=== PATIENT | male | born 1945 | race Caucasian/White ===

== ENCOUNTER 2022-05-05 11:44 | Inpatient (IN) | payer MEDICARE, OTHER ==
[~2022-05-05] VITALS: Ht 182.9 cm; Wt 81.6 kg
--- NOTE | 2022-05-05 12:13 | NUR ---
DR REDDY AT BEDSIDE
[2022-05-05] MEDS ORDERED: ONDANSETRON HCL/PF 4 MG/2 ML VIAL IVP ONE (12:30)
[2022-05-05] MEDS ORDERED: MORPHINE SULFATE INJ 2 MG/ML DISP.SYRIN IV ONE (12:30)
[2022-05-05] MEDS ORDERED: ONDANSETRON HCL/PF 4 MG/2 ML VIAL ONE (12:44)
[2022-05-05] MEDS ORDERED: MORPHINE SULFATE INJ 4 MG/ML DISP.SYRIN ONE (12:45)
[2022-05-05 12:46] LABS: BASOPHILS % (AUTO) 0.3 % (0.0-2.0); HEMATOCRIT 48 % (39-51); HEMOGLOBIN 15.3 g/dL (13.5-17.5); LYMPHOCYTES # (AUTO) 0.4 K/uL (0.8-4.8); LYMPHOCYTES % (AUTO) 4.7 % (20.0-44.0); MEAN CORPUSCULAR HGB CONC 32 g/dl (31.0-36.0); MEAN CORPUSCULAR VOLUME 96 fL (80-96); MONOCYTES # (AUTO) 0.5 K/uL (0.1-1.30); NEUTROPHILS # (AUTO) 7.4 K/uL (1.8-8.9); PLATELET COUNT (AUTO) 123 K/uL (150-450); WHITE BLOOD COUNT (AUTO) 8.3 K/uL (4.3-11.0)
[2022-05-05 12:54] LABS: CALCIUM, SERUM 10.1 mg/dL (8.5-10.1); CARBON DIOXIDE 26 mmol/L (21-32); CHLORIDE 103 mmol/L (98-107); CREATININE 0.9 mg/dL (0.6-1.3); GLUCOSE 91 mg/dL (74-106); POTASSIUM 3.4 mmol/L (3.5-5.1); SODIUM SERUM 139 mmol/L (136-145); UREA NITROGEN, BLOOD 18 mg/dL (7-18)
[2022-05-05 13:00] LABS: ALANINE AMINOTRANSFERASE 46 U/L (12-78); ALKALINE PHOSPHATASE 110 U/L (46-116); ASPARTATE AMINOTRANSFERASE 198 U/L (15-37); BILIRUBIN,DIRECT 0.5 mg/dL (0.0-0.2); BILIRUBIN,TOTAL 1.4 mg/dL (0.2-1.0); TOTAL PROTEIN, SERUM 7.9 g/dL (6.4-8.2)
[2022-05-05 13:09] LABS: ALBUMIN 3.5 g/dL (3.4-5.0)
--- NOTE | 2022-05-05 13:10 | NUR ---
PT TAKEN TO CT VIA RAD[facility]
--- NOTE | 2022-05-05 13:20 | NUR ---
PT BACK FROM CT, DAUGHTER SPEAKING WITH DR. REDDY AT BEDSIDE.
--- NOTE | 2022-05-05 14:11 | NUR ---
URINE SAMPLE COLLECTED AND SENT TO LAB
[2022-05-05] MEDS ORDERED: APIX2.5T PO (14:22)
[2022-05-05] MEDS ORDERED: LORA-258 PO (14:22)
[2022-05-05] MEDS ORDERED: CLOP75TA15 PO (14:22)
[2022-05-05] MEDS ORDERED: MELO-107 PO (14:22)
[2022-05-05] MEDS ORDERED: POTA20TA10 PO (14:22)
[2022-05-05] MEDS ORDERED: FERR325T24 PO (14:22)
[2022-05-05] MEDS ORDERED: METO25TA4 PO (14:22)
[2022-05-05] MEDS ORDERED: BUME1TAB8 PO (14:22)
[2022-05-05] MEDS ORDERED: ARIP2TAB19 PO (14:22)
[2022-05-05] MEDS ORDERED: ATOR40TA PO (14:22)
[2022-05-05] MEDS ORDERED: TAMS-12 PO (14:22)
[2022-05-05] MEDS ORDERED: NITR0.4T48 SL (14:22)
[2022-05-05] MEDS ORDERED: IV NS 0.9% 1,000 ML BAG IV ONE (14:30)
[2022-05-05] MEDS ORDERED: IOHEXOL-350 100 ML VIAL IV ONE (14:40)
[2022-05-05] MEDS ORDERED: IV NS 0.9% 250 ML IV ONE (14:40)
--- NOTE | 2022-05-05 14:51 | NUR ---
covid swab taken
[2022-05-05 15:30] LABS: BILIRUBIN,URINE 1+ (NEGATIVE); COLOR,URINE YELLOW (YELLOW); LEUKOCYTE ESTERASE ,URINE NEGATIVE (NEGATIVE); NITRITE, URINE NEGATIVE (NEGATIVE); PH,URINE 5.5 (5.0-8.0); PROTEIN,URINE 1+ mg/dl (NEGATIVE); UGLUCOSE NEGATIVE (NEGATIVE)
[2022-05-05] MEDS ORDERED: ONDANSETRON HCL/PF 4 MG/2 ML VIAL IVP PRN (15:30)
[2022-05-05] MEDS ORDERED: MAGNESIUM HYDROXIDE 30 ML UDC PO PRN (15:30)
[2022-05-05] MEDS ORDERED: Z GUARD REMEDY 4 OZ OINT TP PRN (15:30)
[2022-05-05] MEDS ORDERED: NITROGLYCERIN 0.4 MG/TAB BOTTLE SL PRN (15:30)
[2022-05-05] MEDS ORDERED: ARIPIPRAZOLE 2 MG TABLET PO PRN (15:30)
[2022-05-05] MEDS ORDERED: MAG HYDROX/AL HYDROX/SIMETH 30 ML UDC PO PRN (15:30)
[2022-05-05] MEDS ORDERED: ASPIRIN EC 81 MG TABLET.DR PO SCH (15:30)
[2022-05-05 16:04] LABS: BACTERIA,URINE None seen /HPF (None Seen); RBC,URINE 51-80 /HPF (0-2); SQUAMOUS EPITHELIAL CELL,UR 0-2 /HPF (None Seen); URINE AMORPHOUS URATE Many /HPF (None Seen); WBC,URINE 0-2 /HPF (0-3)
--- NOTE | 2022-05-05 16:28 | NUR ---
INFLUENZA SWAB COLLECTED AND SENT TO LAB.
[2022-05-05] MEDS ORDERED: APIXABAN 2.5 MG TABLET PO SCH (17:00)
[2022-05-05] MEDS ORDERED: TAMSULOSIN 0.4 MG CAP.SR.24H PO SCH (18:00)
[2022-05-05] MEDS ORDERED: ATORVASTATIN 40 MG TABLET PO SCH (18:00)
--- NOTE | 2022-05-05 18:24 | NUR ---
influenza + , made aware
--- NOTE | 2022-05-05 18:32 | NUR ---
can go to room 108 isolation room
[2022-05-05] MEDS ORDERED: OSELTAMIVIR PHOSPHATE 75 MG CAPSULE PO SCH (19:00)
--- NOTE | 2022-05-05 19:25 | NUR ---
ATTEMPTED TO GIVE REPORT, I WAS TOLD TO CALL BACK IN 20 MINS.
--- NOTE | 2022-05-05 19:38 | NUR ---
REPORT GIVEN TO PRINCE FRITZ.
[2022-05-05 20:00] VITALS: BP 115/68
[2022-05-05] MEDS: TAMSULOSIN 0.4 MG CAP.SR.24H PO SCH (21:28)
[2022-05-05] MEDS: OSELTAMIVIR PHOSPHATE 75 MG CAPSULE PO SCH (21:28)
[2022-05-05] MEDS: ACETAMINOPHEN 325 MG TABLET PO PRN (21:29)
[2022-05-05] MEDS: METOPROLOL SUCCINATE 25 MG TAB.SR.24H PO SCH (21:29)
[2022-05-05] MEDS: ATORVASTATIN 40 MG TABLET PO SCH (21:29)
[2022-05-05] MEDS: ASPIRIN EC 81 MG TABLET.DR PO SCH (21:30)
[2022-05-05] MEDS: APIXABAN 2.5 MG TABLET PO SCH (21:31)
[2022-05-06] VITALS: BP 111/70
[2022-05-06] MEDS: LORAZEPAM 0.5 MG TABLET PO PRN (00:53)
[2022-05-06 04:00] VITALS: BP 120/84
--- NOTE | 2022-05-06 07:00 | NUR ---
RN CLOSING NOTE: ALERT TO NAME. CONFUSED AND DISORIENTED, REORIENTED NEEDED. EPISODES OF CONFUSION, AND ANGRY OUTBURST, ATIVAN GIVEN PRN ORDERED AND EFFECTIVE. CONTINENT OF URINE IS YELLOW. TOTAL CARE PROVIDED. ON TELE MONITOR PAT FRITZ. IV ON RIGHT HAND 20 G SALINE LOCKED. KEPT CLEAN AND DRY. TURNED AND REPOSITIONED. HOB ELEVATED SEMI-GRIFFITHS'S POSITION, BILATERAL HALF SIDE RAILS UP X2. BED IN LOW POSITION, LOCKED, BED EXIT ALARM ON, CALL LIGHT IN REACH.
[2022-05-06 07:09] LABS: BASOPHILS % (AUTO) 0.2 % (0.0-2.0); HEMATOCRIT 40 % (39-51); HEMOGLOBIN 13.1 g/dL (13.5-17.5); LYMPHOCYTES # (AUTO) 0.3 K/uL (0.8-4.8); LYMPHOCYTES % (AUTO) 5.3 % (20.0-44.0); MEAN CORPUSCULAR HGB CONC 33 g/dl (31.0-36.0); MEAN CORPUSCULAR VOLUME 95 fL (80-96); MONOCYTES # (AUTO) 0.4 K/uL (0.1-1.30); MONOCYTES % (AUTO) 6.6 % (2.0-12.0); NEUTROPHILS # (AUTO) 5.3 K/uL (1.8-8.9); NEUTROPHILS % (AUTO) 87.9 % (43.0-81.0); PLATELET COUNT (AUTO) 107 K/uL (150-450); RED BLOOD CELL COUNT(AUTO) 4.22 MIL/uL (4.5-6.0); WHITE BLOOD COUNT (AUTO) 6.1 K/uL (4.3-11.0)
[2022-05-06 07:26] LABS: CALCIUM, SERUM 8.9 mg/dL (8.5-10.1); CARBON DIOXIDE 29 mmol/L (21-32); CHLORIDE 107 mmol/L (98-107); CREATININE 0.8 mg/dL (0.6-1.3); GLUCOSE 86 mg/dL (74-106); MAGNESIUM 2.1 mg/dL (1.8-2.4); PHOSPHORUS 3.1 mg/dL (2.5-4.9); POTASSIUM 3.7 mmol/L (3.5-5.1); SODIUM SERUM 143 mmol/L (136-145); UREA NITROGEN, BLOOD 20 mg/dL (7-18)
--- NOTE | 2022-05-06 07:50 | NUR ---
INVENTORY ASSOCIATE AND DRIVER OPENING NOTES RECEIVED PT AWAKE IN BED. NO COMPLAINTS OF PAIN OR DISCOMFORT AT THIS TIME. RESPIRATIONS ARE EQUAL AND UNLABORED WITH NO SOB CURRENTLY ON NC ON 2L AND TOLERATING IT WELL. PT IS PO AND RECEIVES MEDS ORALLY. IV ACCESS ON RIGHT HAND 20G PATENT AND INTACT. HOB ELEVATED TO PTS COMFORT. SIDERAILS UP AT ALL TIMES. CALL LUIGHT WITHIN REACH. WILL CONTINUE CURRENT PLAN OF CARE.
[2022-05-06 08:00] VITALS: BP 124/80
[2022-05-06] MEDS: ASPIRIN EC 81 MG TABLET.DR PO SCH (08:58)
[2022-05-06] MEDS: OSELTAMIVIR PHOSPHATE 75 MG CAPSULE PO SCH ×2 (08:58→20:38)
[2022-05-06] MEDS: CLOPIDOGREL BISULFATE 75 MG TABLET PO SCH (08:58)
[2022-05-06] MEDS: FERROUS SULFATE (325 MG) 325 MG/TAB TABLET PO SCH (08:59)
[2022-05-06] MEDS: METOPROLOL SUCCINATE 25 MG TAB.SR.24H PO SCH ×2 (08:59→20:39)
[2022-05-06] MEDS: APIXABAN 2.5 MG TABLET PO SCH (09:00)
[2022-05-06] MEDS ORDERED: POTASSIUM CHLORIDE 20 MEQ TAB.PRT.SR PO SCH (09:00)
[2022-05-06] MEDS ORDERED: BUMETANIDE (1 MG) 1 MG TABLET PO SCH (09:00)
--- NOTE | 2022-05-06 09:24 | NUR ---
SUPPLY CLERK NOTE DR PERAZA AT BEDSIDE,NOTIFIED THAT PATIENT ON TELE MONITOR A FIB HR 115 AND LAST NIGHT WAS ONE TIME AFIB 130 STATED THAT WILL CHECK IT OUT
--- NOTE | 2022-05-06 10:49 | NUR ---
telephone sales representative note patient has redness both buttocks and rt elbow, wound consult ordered will f \u
--- NOTE | 2022-05-06 11:23 | NUR ---
TRANSFUSION NURSE NOTE ABDOMINAL US DONE
[2022-05-06 11:32] LABS: ALBUMIN 2.8 g/dL (3.4-5.0); BILIRUBIN,DIRECT 0.4 mg/dL (0.0-0.2); BILIRUBIN,TOTAL 0.9 mg/dL (0.2-1.0); TOTAL PROTEIN, SERUM 6.4 g/dL (6.4-8.2)
[2022-05-06 12:00] VITALS: BP 120/70
[2022-05-06 12:05] LABS: THYROID STIMULATING HORMONE 0.583 uIU/mL (0.358-3.74)
--- NOTE | 2022-05-06 12:27 | NUR ---
RN ACUTE NOTES RELAYED LABS TO DR MUSE, BMP 7535, CKMB 244, TROPONIN 244, WITH NO NEW ORDERS AT THIS TIME FOR THESE LAS. NEW ORDER FOR PT EVAL, NOTED AND CARRIED OUT.
--- NOTE | 2022-05-06 13:20 | NUR ---
television picture tube rebuilder note pt eval done ,able to stand up with mod assistance
[2022-05-06] MEDS: SOD FERRIC GLUC 125 MG in IV NS 0.9% 100 ML IV SCH (14:01)
--- NOTE | 2022-05-06 14:53 | NUR ---
INFORMATION SYSTEMS COORDINATOR NOTE AGITATED TRYING TO REMOVE IV HL AND GET OUT OFF BED ,ABILIFY 2MG PO GIVEN PRN ORDERED
[2022-05-06 16:00] VITALS: BP 126/70
--- NOTE | 2022-05-06 16:00 | NUR ---
telegraph lineman note new hl inserted on rt fa ani 22 with good blood return
[2022-05-06] MEDS: ATORVASTATIN 40 MG TABLET PO SCH (17:32)
[2022-05-06] MEDS: TAMSULOSIN 0.4 MG CAP.SR.24H PO SCH (17:32)
[2022-05-06] MEDS: ACETAMINOPHEN 325 MG TABLET PO PRN (17:33)
--- NOTE | 2022-05-06 17:33 | NUR ---
MANAGING DIRECTOR NOTE CALLED TO DR EDGAR PAIN MANAGEMENT PER DR ELLIS ORDER , LEFT A MESSAGE
--- NOTE | 2022-05-06 17:37 | NUR ---
LUGGAGE LINER NOTES INFORMED DR MUSE ABOUT PT HAVING BLOOD IN URINE AND THAT URINE SPECIMEN YESTERDAY HAD URINE RBC 51-80. ALSO INFORMED MD THAT PT IS TAKING ELIQUIS AND ASPIRIN. STATED NNO AT THIS TIME.
--- NOTE | 2022-05-06 18:30 | NUR ---
FOREIGN EXCHANGE TRADER CLOSING NOTES PT IS AWAKE IN BED. NO COMPLAINTS OF PAIN OR DISCOMFORT AT THIS TIME. ON NC 2L AND TOLERATING IT WELL WITH 02 SATURATION AT 97%. ALL DUE MEDS AND TX GIVEN ORDERED. PT TOLERATED EVERYTHING WELL. IV ACCESS ON RFA 22 GAUGE PATENT AND INTACT. ALL NEEDS ATTENDED TO. HOB ELEVATED TO 30-45 DEGREES. SIDERALS UP AT ALL TIMES. CALL LIGHT WITHIN REACH. WILL ENDORSE TO ONCOMING NURSE.
--- NOTE | 2022-05-06 19:30 | NUR ---
RN opening notes Received Pt from morning nurse. Pt is resting in bed comfortably in bed. Pt is alert and orientedx1-2 with episode of confusion. On 2 L NC. No SOB. No S/S of distress noted. IV site at RFA# 22 is clean, intact and flushes easily. Tele monitor showed afib and a-flutter. Per am nurse MD is aware and informed. Safety precautions is maintained. Bed at low position, brakes locked, side rails upX3, hob elevated, bed alarm is on and call light is within reach. Will continue to monitor.
[2022-05-06 20:00] VITALS: BP 107/69
[2022-05-06] MEDS: APIXABAN 5 MG TABLET PO SCH (20:39)
[2022-05-07] VITALS: BP 106/73
[2022-05-07 04:00] VITALS: BP 110/72
[2022-05-07] MEDS: HYDROCODONE/APAP 5/325MG TABLET PO PRN ×2 (05:15→22:10)
--- NOTE | 2022-05-07 05:20 | NUR ---
RN notes Pt is complaining of back pain and requesting pain meds. Admnistered norco/1 tab/po/prn as ordered for pain. VS is stable. safety precautions is maintained. will continue to monitor.
--- NOTE | 2022-05-07 06:56 | NUR ---
RN closing notes Pt is resting in bed comfortably in bed. Pt is alert and orientedx1-2 with episode of confusion. On 2 L NC. No SOB. No S/S of distress noted. IV site at RFA# 22 is clean, intact and flushes easily. Tele monitor showed afib. Routine meds were given as ordered. Kept Pt clean, dry and comfortable. Safety precautions is maintained. Bed at low position, brakes locked, side rails upX3, hob elevated, bed alarm is on and call light is within reach. Will endorse to am nurse for MONICA.
[2022-05-07 08:00] VITALS: BP 110/72
--- NOTE | 2022-05-07 08:00 | NUR ---
0PENING NOTES RECEIVED PT AWAKE IN BED. NO COMPLAINTS OF PAIN OR DISCOMFORT AT THIS TIME. RESPIRATIONS ARE EQUAL AND UNLABORED WITH NO SOB CURRENTLY ON NC ON 2L AND TOLERATING IT WELL. PT IS PO AND RECEIVES MEDS ORALLY. IV ACCESS ON RIGHT HAND 20G PATENT AND INTACT. HOB ELEVATED TO PTS COMFORT. SIDERAILS UP AT ALL TIMES. CALL LUIGHT WITHIN REACH. WILL CONTINUE CURRENT PLAN OF CARE.
--- NOTE | 2022-05-07 08:50 | NUR ---
WOUND CARE CONSULT: REVIEWED CHART, NURSING DOCUMENTATION AND PHOTOS WHICH INDICATE AREAS OF SKIN DISCOLORATION, PRESENT ON ADMISSION. PT IS AMBULATORY AND CONTINENT PER NURSING STAFF. WILL SEE PRN.
[2022-05-07] MEDS: CLOPIDOGREL BISULFATE 75 MG TABLET PO SCH (09:05)
[2022-05-07] MEDS: FERROUS SULFATE (325 MG) 325 MG/TAB TABLET PO SCH (09:10)
[2022-05-07] MEDS: METOPROLOL SUCCINATE 25 MG TAB.SR.24H PO SCH (09:10)
[2022-05-07] MEDS: APIXABAN 5 MG TABLET PO SCH ×2 (09:11→22:02)
[2022-05-07] MEDS: OSELTAMIVIR PHOSPHATE 75 MG CAPSULE PO SCH ×2 (09:11→22:00)
[2022-05-07] MEDS: ASPIRIN EC 81 MG TABLET.DR PO SCH (09:12)
--- NOTE | 2022-05-07 10:00 | NUR ---
REPORT GIVEN TO SUSAN TO CONTINUING OF CARE.
[2022-05-07 12:00] VITALS: BP 109/64
[2022-05-07] MEDS: SOD FERRIC GLUC 125 MG in IV NS 0.9% 100 ML IV SCH (14:18)
[2022-05-07 15:06] LABS: *SPE ALPHA-1-GLOBULIN 0.3 g/dL (0.0-0.4); *SPE ALPHA-2-GLOBULIN 0.8 g/dL (0.4-1.0); *SPE BETA GLOBULIN 0.9 g/dL (0.7-1.3); *SPE M-SPIKE Not Observed g/dL (Not Observed)
[2022-05-07 16:00] VITALS: BP 127/75
[2022-05-07] MEDS: TAMSULOSIN 0.4 MG CAP.SR.24H PO SCH (17:14)
[2022-05-07] MEDS: ATORVASTATIN 40 MG TABLET PO SCH (17:14)
--- NOTE | 2022-05-07 19:30 | NUR ---
RN OPENING NOTE PATIENT IN BED, AWAKE. PATIENT IS ABLE TO MAKE NEEDS KNOWN A/O X 2 AT THIS TIME. PATIENT ON 2LPM VIA NC, TOLERATING WELL. NOTED TO HAVE SOB UPON EXERTION. PATIENT HAS A RFA 22 G PATENT AND INTACT, FLUSHING WELL. PATIENT NOT IN ANY APPARENT DISTRESS. SAFETY MEASURES IN PLACE: BED LOCKED AND IN LOWEST POSITION, CALL LIGHT WITHIN REACH, SIDE RAILS UP. WILL MONITOR PATIENT CLOSELY.
[2022-05-07 20:00] VITALS: BP 106/60
[2022-05-07] MEDS: METOPROLOL SUCCINATE 50 MG TAB.SR.24H PO SCH (22:01)
--- NOTE | 2022-05-07 22:10 | NUR ---
PATIENT COMPLAINING OF BACK PAIN 11/17, NORCO [phone] ADMINISTERED. WILL REASSESS PAIN AT A LATER TIME.
[2022-05-08] VITALS: BP 116/65
[2022-05-08 04:00] VITALS: BP 110/68
[2022-05-08 06:32] LABS: BASOPHILS % (AUTO) 0.3 % (0.0-2.0); HEMATOCRIT 43 % (39-51); HEMOGLOBIN 13.9 g/dL (13.5-17.5); LYMPHOCYTES # (AUTO) 0.9 K/uL (0.8-4.8); LYMPHOCYTES % (AUTO) 17.4 % (20.0-44.0); MEAN CORPUSCULAR HGB CONC 33 g/dl (31.0-36.0); MEAN CORPUSCULAR VOLUME 95 fL (80-96); MONOCYTES # (AUTO) 0.6 K/uL (0.1-1.30); MONOCYTES % (AUTO) 11.4 % (2.0-12.0); NEUTROPHILS # (AUTO) 3.7 K/uL (1.8-8.9); NEUTROPHILS % (AUTO) 69.9 % (43.0-81.0); PLATELET COUNT (AUTO) 143 K/uL (150-450); WHITE BLOOD COUNT (AUTO) 5.4 K/uL (4.3-11.0)
--- NOTE | 2022-05-08 06:44 | NUR ---
RN CLOSING NOTE PATIENT IN BED, AWAKE. PATIENT IS ABLE TO MAKE NEEDS KNOWN A/O X 2 AT THIS TIME. PATIENT ON 2LPM VIA NC, TOLERATED DURING THE SHIFT. PATIENT HAS A RFA 22 G PATENT AND INTACT, FLUSHING WELL, NEW IV ACCESS PLACED ON THE LFA 20 G, PATENT AND INTACT. PATIENT PENDING CT ANGIO AWAITING CONSENT FROM APOLINAR VINES. PATIENT NOT IN ANY APPARENT DISTRESS. SAFETY MEASURES IN PLACE: BED LOCKED AND IN LOWEST POSITION, CALL LIGHT WITHIN REACH, SIDE RAILS UP. ALL NEEDS MET AND ATTENDED. ALL ORDERS CARRIED OUT. WILL ENDORSE TO DAY SHIFT NURSE FOR MONICA.
[2022-05-08 07:24] LABS: ALANINE AMINOTRANSFERASE 59 U/L (12-78); ALBUMIN 2.8 g/dL (3.4-5.0); ALKALINE PHOSPHATASE 87 U/L (46-116); ASPARTATE AMINOTRANSFERASE 154 U/L (15-37); BILIRUBIN,TOTAL 0.7 mg/dL (0.2-1.0); CARBON DIOXIDE 29 mmol/L (21-32); CHLORIDE 107 mmol/L (98-107); CREATININE 0.8 mg/dL (0.6-1.3); GLUCOSE 110 mg/dL (74-106); MAGNESIUM 2.1 mg/dL (1.8-2.4); PHOSPHORUS 2.1 mg/dL (2.5-4.9); POTASSIUM 3.5 mmol/L (3.5-5.1); SODIUM SERUM 142 mmol/L (136-145); TOTAL PROTEIN, SERUM 6.6 g/dL (6.4-8.2); UREA NITROGEN, BLOOD 17 mg/dL (7-18)
--- NOTE | 2022-05-08 07:45 | NUR ---
LOGISTICS SOLUTION MANAGER OPENING NOTES: RECEIVED PATIENT IN BED, AWAKE, IS ABLE TO MAKE NEEDS KNOWN A/O X 2 AT THIS TIME. PATIENT ON 2LPM VIA NC, TOLERATING WELL, NO S/S OF SOB. TELE MONITOR READS AFIB, HR - 89. PATIENT HAS A RFA 22 G AND L FA #20, BOTH SL, PATENT AND INTACT, FLUSHING WELL. PATIENT PENDING CT ANGIO AWAITING CONSENT FROM APOLINAR VINES. SAFETY MEASURES IN PLACE: BED LOCKED AND IN LOWEST POSITION, CALL LIGHT WITHIN REACH, SIDE RAILS UP X3, WILL CONT WITH PLAN OF CARE DURING SHIFT.
[2022-05-08 08:00] VITALS: BP 108/73
[2022-05-08] MEDS: OSELTAMIVIR PHOSPHATE 75 MG CAPSULE PO SCH ×2 (08:13→20:51)
[2022-05-08] MEDS: ASPIRIN EC 81 MG TABLET.DR PO SCH (08:13)
[2022-05-08] MEDS: APIXABAN 5 MG TABLET PO SCH ×2 (08:16→23:13)
[2022-05-08] MEDS: CLOPIDOGREL BISULFATE 75 MG TABLET PO SCH (08:16)
[2022-05-08] MEDS: METOPROLOL SUCCINATE 50 MG TAB.SR.24H PO SCH ×2 (08:49→20:52)
[2022-05-08] MEDS ORDERED: K PHOS NEUTRAL 250 MG TABLET PO ONE (11:00)
[2022-05-08] MEDS: NEUTRA PHOS 1 POWD.PACKET PO SCH ×2 (11:07→17:25)
--- NOTE | 2022-05-08 11:21 | NUR ---
RN NOTES: PT C/O CHEST PAIN, PT UNABLE TO SAY WHAT LEVEL, GIVEN PRN NITRO 0.4MG, 1 TIME ONLY, PT STATES PAIN HAS SUBSIDED.
[2022-05-08] MEDS ORDERED: FERR325T23 PO (11:31)
[2022-05-08] MEDS ORDERED: OSEL75CA PO (11:31)
[2022-05-08] MEDS ORDERED: Aspirin Ec PO (11:31)
[2022-05-08] MEDS ORDERED: APIX5TAB PO (11:31)
[2022-05-08] MEDS ORDERED: Hydrocodone/Apap 5/325MG PO (11:31)
[2022-05-08] MEDS ORDERED: METO50TA7 PO (11:31)
[2022-05-08] MEDS ORDERED: NITROGLYCERIN 0.4 MG/TAB BOTTLE ONE (11:44)
[2022-05-08] MEDS ORDERED: IOHEXOL-350 100 ML VIAL IV ONE (11:44)
[2022-05-08] MEDS ORDERED: IV NS 0.9% 250 ML IV ONE (11:45)
[2022-05-08] MEDS ORDERED: METOPROLOL TARTRATE INJ 5 MG/5 ML AMPUL ONE (11:45)
[2022-05-08] MEDS ORDERED: CT SWABBABLE VALVE TRANS SET 1 EA INFUS.SET MC ONE (11:45)
[2022-05-08] MEDS: METOPROLOL TARTRATE INJ 5 MG/5 ML AMPUL IVP PRN ×2 (11:50→11:55)
--- NOTE | 2022-05-08 11:55 | NUR ---
ctca notes: pt started to scream & trying to get up. unable to calm down. procedure not done. chg rn sooni notified. pt back to room. vss stable.
[2022-05-08 12:00] VITALS: BP 121/84
[2022-05-08] MEDS ORDERED: NITROGLYCERIN 0.4 MG/TAB BOTTLE SL ONE (13:00)
[2022-05-08] MEDS ORDERED: IV NS 0.9% 500 ML IV PRN (13:00)
[2022-05-08] MEDS: LORAZEPAM 0.5 MG TABLET PO PRN ×2 (14:32→20:52)
[2022-05-08 16:00] VITALS: BP 120/90
[2022-05-08] MEDS: SOD FERRIC GLUC 125 MG in IV NS 0.9% 100 ML IV SCH (16:15)
[2022-05-08] MEDS: ATORVASTATIN 40 MG TABLET PO SCH (17:31)
[2022-05-08] MEDS: TAMSULOSIN 0.4 MG CAP.SR.24H PO SCH (17:32)
[2022-05-08 20:00] VITALS: BP 116/71
--- NOTE | 2022-05-08 20:09 | NUR ---
BULL WHEEL WORKER CLOSING NOTES: PATIENT IN BED, AWAKE, IS ABLE TO MAKE NEEDS KNOWN A/O X 2 AT THIS TIME. PATIENT ON 2LPM VIA NC, TOLERATING WELL, NO S/S OF SOB. TELE MONITOR READS AFIB, HR - 85. PATIENT HAS A RFA 22 G AND L FA #20, BOTH SL, PATENT AND INTACT, FLUSHING WELL. PATIENT PENDING CT, CONSENT GIVEN BY PHONE BY SON JASMYN. PT REFUSED PHYSICAL THERAPY TODAY AND WAS TOO AGITATED FOR CT PER RAD STAFF, AWARE, WILL RETRY 05/09/2022. ALL DUE MEDS GIVEN, KEPT PT CLEAN, DRY AND COMFORTABLE. SAFETY MEASURES IN PLACE: BED LOCKED AND IN LOWEST POSITION, CALL LIGHT WITHIN REACH, SIDE RAILS UP X3, ENDORSED TO PM SHIFT.
--- NOTE | 2022-05-08 20:55 | NUR ---
ANXIETY Patient restless, impulsive. Getting out from bed unassisted. Anxious, given PO Ativan. Fall precaution maintained.
--- NOTE | 2022-05-08 23:14 | NUR ---
ANTICOAGULANT H/H 13.9 PLT 143 No bleeding. Patient for CT Angio Heart tomorrow 05/09/22. Notified Isabel Mcgill with orders okay to give Eliquis dose mundo 05/08/30. Given Eliquis co-signed by LAM Arroyo.
[2022-05-09 00:53] VITALS: BP 124/78
[2022-05-09 05:28] VITALS: BP 139/74
--- NOTE | 2022-05-09 07:31 | NUR ---
METALLOGRAPHER OPENING NOTES: RECEIVED PT IN BED AWAKE ALERT AND ORIENTED X 2 AND ABLE TO MAKE NEEDS KNOWN. WITH EPISODES OF FORGETFULNESS AND CONFUSION. NEEDS FREQUENT REORIENTATION AND RE DIRECTION. PT APPEARED ANXIOUS. ON O2 INHALATION @ 2LPM VIA NC AND TOLERATING WELL. ON REFRIGERATOR CAR ICER WITH CURRENT READING OF A FIB @100BPM. PT NOTED WITH LEFT FA GAUGE 20,PATENT,INTACT AND SL. SAFETY MEASURES MAINTAINED: BED LOCKED AND IN LOWEST POSITION,SIDE RAILS UP X 2. CALL LIGHT IN EASY REACH FOR HELP. WILL MONITOR PT ACCORDINGLY.
--- NOTE | 2022-05-09 07:59 | NUR ---
END OF SHIFT REPORT Patient up sitting in bed. A/O x2 forgetful. Restless at times, uncooperative, impulsive. Afib AFlutter HR 100's in the Telemonitor, no c/o chest pain. Patient on Eliquis. Plan for CT Angio Heart today. Consent in the chart. For dc after CTA. Endorsed to LAM Hobbs.
[2022-05-09 08:00] VITALS: BP 126/89
--- NOTE | 2022-05-09 08:00 | NUR ---
RN NOTES PATIENT WENT FOR CTCA PT STABLE, MORNING MED GIVEN ADN LINDA WELL.
[2022-05-09] MEDS: OSELTAMIVIR PHOSPHATE 75 MG CAPSULE PO SCH ×2 (08:34→21:40)
[2022-05-09] MEDS: ASPIRIN EC 81 MG TABLET.DR PO SCH (08:34)
[2022-05-09] MEDS: CLOPIDOGREL BISULFATE 75 MG TABLET PO SCH (08:35)
[2022-05-09] MEDS: METOPROLOL SUCCINATE 50 MG TAB.SR.24H PO SCH ×2 (08:35→21:42)
[2022-05-09] MEDS: APIXABAN 5 MG TABLET PO SCH ×2 (08:36→21:41)
[2022-05-09] MEDS ORDERED: CT SWABBABLE VALVE TRANS SET 1 EA INFUS.SET MC ONE (09:01)
[2022-05-09] MEDS ORDERED: IOHEXOL-350 100 ML VIAL IV ONE (09:01)
[2022-05-09] MEDS ORDERED: IV NS 0.9% 250 ML IV ONE (09:02)
[2022-05-09] MEDS: METOPROLOL TARTRATE INJ 5 MG/5 ML AMPUL IVP PRN ×4 (09:10→09:25)
[2022-05-09] MEDS ORDERED: METOPROLOL TARTRATE INJ 5 MG/5 ML AMPUL ONE (09:29)
[2022-05-09] MEDS ORDERED: NITROGLYCERIN 0.4 MG/TAB BOTTLE SL ONE (09:30)
[2022-05-09] MEDS ORDERED: K PHOS NEUTRAL 250 MG TABLET PO ONE (10:00)
[2022-05-09] MEDS: LORAZEPAM 0.5 MG TABLET PO PRN ×2 (10:31→21:40)
--- NOTE | 2022-05-09 10:59 | NUR ---
RN NOTES: PT S/P CTCA. PT STABLE. LORAZEPAM 0.5 MG/TAB GIVEN.
[2022-05-09 12:00] VITALS: BP 106/74
--- NOTE | 2022-05-09 13:48 | NUR ---
FOLLOWUP CTA RESULT ,PER RADIOLOGY STILL PENDING RESULT.
[2022-05-09] MEDS: SOD FERRIC GLUC 125 MG in IV NS 0.9% 100 ML IV SCH (15:19)
[2022-05-09] MEDS: ACETAMINOPHEN 325 MG TABLET PO PRN (15:42)
--- NOTE | 2022-05-09 15:50 | NUR ---
RN NOTES: RELAYED CTCA RESULT TO ARMINDA POWERS TO DC.FOLLOW UP DC PLAN FROM ROAD FREIGHT CONDUCTOR AKILAH, NO ROOM AVAILABLE FOR NOW AVAILABLE FOR PT. WILL CONTINUE TO FOLLOW UP.
[2022-05-09 16:00] VITALS: BP 125/81
[2022-05-09] MEDS: TAMSULOSIN 0.4 MG CAP.SR.24H PO SCH (17:45)
[2022-05-09] MEDS: ATORVASTATIN 40 MG TABLET PO SCH (17:45)
--- NOTE | 2022-05-09 18:48 | NUR ---
VASCULAR ULTRASOUND TECHNOLOGIST CLOSING NOTES: PT IN BED AWAKE ALERT AND ORIENTED X 2 AND ABLE TO MAKE NEEDS KNOWN.FAMILY AT BED SIDE.PT NOTED WITH EPISODES OF FORGETFULNESS AND CONFUSION. NEEDS FREQUENT REORIENTATION AND RE DIRECTION. ON O2 INHALATION @ 2LPM VIA NC PT KEPT REMOVING IT ON AND OFF, NOTED WITH EPISODES OF SOB. ON TEST PILOT WITH CURRENT READING OF A FIB @93BPM. PT NOTED WITH LEFT FA GAUGE 20,PATENT,INTACT AND SL. SAFETY MEASURES MAINTAINED: BED LOCKED AND IN LOWEST POSITION,SIDE RAILS UP X 2. CALL LIGHT IN EASY REACH FOR HELP.ENDORSED TO ENVIRONMENTAL WEB CRAWLER RN FOR MONICA.
--- NOTE | 2022-05-09 19:35 | NUR ---
NEUROPSYCHOLOGIST OPENING NOTES: RECEIVED PT IN BED AWAKE ALERT AND ORIENTED X 2 AND ABLE TO MAKE NEEDS KNOWN. WITH EPISODES OF FORGETFULNESS AND CONFUSION. NEEDS FREQUENT REORIENTATION AND RE DIRECTION. PT IS RESTLESS. ON O2 INHALATION @ 2LPM VIA NC AND TOLERATING WELL. ON PIANO SOUNDING BOARD MATCHER WITH CURRENT READING OF A FIB @ 97 BPM. LEFT FA GAUGE 20, PATENT,INTACT AND SL. SAFETY MEASURES MAINTAINED: BED LOCKED AND IN LOWEST POSITION, SIDE RAILS UP X 2. CALL LIGHT IN EASY REACH FOR HELP. WILL MONITOR PT ACCORDINGLY.
[2022-05-09 20:00] VITALS: BP 113/62
--- NOTE | 2022-05-09 21:40 | NUR ---
ENVIRONMENTAL ENGINEERING PROFESSOR NOTE PT IS RESTLESS, AND ANXIOUS. ATIVAN ADMINISTERED TO PT.
[2022-05-10] VITALS: BP 125/64
[2022-05-10 04:00] VITALS: BP 130/65
--- NOTE | 2022-05-10 07:05 | NUR ---
SPECIAL EFFECTS TECHNICIAN CLOSING NOTES: PT IN BED AWAKE ALERT AND ORIENTED X 2 AND ABLE TO MAKE NEEDS KNOWN. PT NOTED WITH EPISODES OF FORGETFULNESS AND CONFUSION. NEEDS FREQUENT REORIENTATION AND RE DIRECTION. ON O2 INHALATION @ 2LPM VIA NC PT KEPT REMOVING IT ON AND OFF. ON DIRECTOR IT WITH CURRENT READING OF A FIB. PT NOTED WITH LEFT FA GAUGE 20,PATENT,INTACT AND SL. SAFETY MEASURES MAINTAINED: BED LOCKED AND IN LOWEST POSITION,SIDE RAILS UP X 2. CALL LIGHT IN EASY REACH FOR HELP. WILL ENDORSE TO AM SHIFT RN FOR MONICA.
--- NOTE | 2022-05-10 07:30 | NUR ---
HAND SPRAY OPERATOR AM NOTES: RECEIVED PT IN BED AWAKE ALERT AND ORIENTED X 2 AND ABLE TO MAKE NEEDS KNOWN. WITH EPISODES OF FORGETFULNESS AND CONFUSION. NEEDS FREQUENT REORIENTATION AND RE DIRECTION. PT IS RESTLESS. ON O2 INHALATION @ 2LPM VIA NC AND TOLERATING WELL. ON WINE MERCHANT WITH CURRENT READING OF A FIB CONTROLLED @ 97 BPM. LEFT FA GAUGE 20, PATENT,INTACT AND SL. SAFETY MEASURES MAINTAINED: BED LOCKED AND IN LOWEST POSITION, SIDE RAILS UP X 2. CALL LIGHT IN EASY REACH FOR HELP. WILL MONITOR PT ACCORDINGLY.
[2022-05-10 08:00] VITALS: BP 125/69
[2022-05-10] MEDS: OSELTAMIVIR PHOSPHATE 75 MG CAPSULE PO SCH (08:47)
[2022-05-10] MEDS: APIXABAN 5 MG TABLET PO SCH (08:48)
[2022-05-10] MEDS ORDERED: DILTIAZEM HCL CD 240 MG PO SCH (09:00)
[2022-05-10] MEDS ORDERED: METOPROLOL SUCCINATE 50 MG TAB.SR.24H PO SCH (09:00)
--- NOTE | 2022-05-10 09:30 | NUR ---
RN NOTES DUE MEDS GIVEN
[2022-05-10] MEDS: LORAZEPAM 0.5 MG TABLET PO PRN ×2 (09:43→16:43)
[2022-05-10] MEDS: ACETAMINOPHEN 325 MG TABLET PO PRN (10:18)
--- NOTE | 2022-05-10 10:52 | NUR ---
LAM NOTES DR. SCOTT AT BEDSIDE. G DONE TRANSFER TO ICU Addendum: 05/10/22 at 1055 by KARLOS FRANCO RN CORRECTION: DISREGARD THIS DOCUMENTATION INTENDED FOR ANOTHER PATIENT
[2022-05-10 12:00] VITALS: BP 128/70
[2022-05-10] MEDS ORDERED: DILT240C88 PO (12:22)
[2022-05-10] MEDS: SOD FERRIC GLUC 125 MG in IV NS 0.9% 100 ML IV SCH (14:26)
[2022-05-10 16:00] VITALS: BP 122/61
--- NOTE | 2022-05-10 16:36 | NUR ---
RN NOTES REPORT GIVEN TO AGUEDA AT FACILITY, AMBULANCE DECK AND HULL ASSEMBLER AT 1700
[2022-05-10] MEDS: TAMSULOSIN 0.4 MG CAP.SR.24H PO SCH (17:16)
[2022-05-10] MEDS: ATORVASTATIN 40 MG TABLET PO SCH (17:16)
--- NOTE | 2022-05-10 17:40 | NUR ---
RN NOTES PATIENT DISCHARGED TO [facility] TODAY PER MD IN STABLE CONDITION. PROVIDED DC INSTRUCTIONS, MED RECON LIST AND HEALTH TEACHINGS. IV ACCESS ON LEFT AC AND RIGHT AC REMOVED. CATH TIP COMPLETE. APPLIED PRESSURE AND DRESSING, NO BLEEDING. PATIENT TO FOLLOW UP WITH PCP IN 1 WEEK OR PER FACILITY PROTOCOL. REFUSED TAKING PHOTOS OF SKIN ISSUES. BELONGINGS CHECKED AND RETURNED, ALL PAPERWORKS SIGNED. PICKED UP BY 3 AMBULANCE CREW AND WILL TRANSPORTED TO FACILITY VIA AMBULANCE. REPORT GIVEN TO NATALIO EARLIER.
== END 2022-05-10 17:53 | DRG 551 ==
LOC: ER 11:47 → TELE1 18:35
PROVIDERS: ATTEND Internal Medicine
DX: M47.26 Other spondylosis with radiculopathy, lumbar region (principal); I21.A1 Myocardial infarction type 2; M62.82 Rhabdomyolysis; R17 Unspecified jaundice; D69.6 Thrombocytopenia, unspecified; I11.0 Hypertensive heart disease with heart failure; I50.9 Heart failure, unspecified; I48.91 Unspecified atrial fibrillation; E87.6 Hypokalemia; I25.10 Atherosclerotic heart disease of native coronary artery without angina pectoris; M41.9 Scoliosis, unspecified; J10.1 Influenza due to other identified influenza virus with other respiratory manifestations; M48.061 Spinal stenosis, lumbar region without neurogenic claudication; M51.36 Other intervertebral disc degeneration, lumbar region; Z79.01 Long term (current) use of anticoagulants; Z95.5 Presence of coronary angioplasty implant and graft; G89.29 Other chronic pain; D64.9 Anemia, unspecified; R74.01 Elevation of levels of liver transaminase levels
CPT/HCPCS: 36415; 70450-TC; 70496-TC; 70498-TC; 71045-TC; 72131-TC; 75574; 76700-TC; 80048-TC; 80053-TC; 80076-TC; 81001; 82550-TC; 82553; 82728-TC; 83540-TC; 83735-TC; 83880; 84100-TC; 84155; 84165; 84439-TC; 84443-TC; 84484-TC; 85025-TC; 85730-TC; 87081-TC; 93307-TC; 97112-TC; 97530-TC; C9803; G0378; J2270; J2405; J2916; J3490; J7030; J7050; Q9967

== ENCOUNTER 2022-08-18 16:20 | Inpatient (IN) | payer MEDICARE, OTHER ==
[~2022-08-18] VITALS: Ht 170.2 cm; Wt 83.1 kg
[~2022-08-18 16:20] MED LIST: APIX5TAB PO; ARIP2TAB19 PO; ATOR40TA PO; Aspirin Ec PO; BUME1TAB8 PO; CLOP75TA15 PO; DILT240C88 PO; FERR325T23 PO; FERR325T24 PO; Hydrocodone/Apap 5/325MG PO; LORA-258 PO; METO50TA7 PO; NITR0.4T48 SL; OSEL75CA PO; POTA20TA10 PO; TAMS-12 PO
--- NOTE | 2022-08-18 16:30 | NUR ---
[id number] from home c/o sudden onset SOB x 15 mins prior to ems arrival.
--- NOTE | 2022-08-18 17:25 | NUR ---
called nursing sup regarding pt bed
[2022-08-18] MEDS ORDERED: FUROSEMIDE 20 MG TABLET ONE (17:26)
[2022-08-18 17:27] LABS: BASOPHILS % (AUTO) 0.5 % (0.0-2.0); EOSINOPHILS % (AUTO) 1.3 % (0.0-6.0); HEMATOCRIT 42 % (39-51); HEMOGLOBIN 13.4 g/dL (13.5-17.5); LYMPHOCYTES % (AUTO) 14.1 % (20.0-44.0); MEAN CORPUSCULAR HGB CONC 32 g/dl (31.0-36.0); MEAN CORPUSCULAR VOLUME 95 fL (80-96); MONOCYTES # (AUTO) 0.8 K/uL (0.1-1.30); NEUTROPHILS # (AUTO) 5.1 K/uL (1.8-8.9); NEUTROPHILS % (AUTO) 73.1 % (43.0-81.0); PLATELET COUNT (AUTO) 137 K/uL (150-450); RED BLOOD CELL COUNT(AUTO) 4.37 MIL/uL (4.5-6.0); WHITE BLOOD COUNT (AUTO) 6.9 K/uL (4.3-11.0)
[2022-08-18] MEDS ORDERED: ASPIRIN 325 MG TABLET ONE (17:27)
[2022-08-18] MEDS ORDERED: ASPIRIN 325 MG TABLET PO ONE (17:30)
[2022-08-18] MEDS ORDERED: FUROSEMIDE 20 MG/2 ML VIAL IV ONE (17:30)
[2022-08-18 17:38] LABS: CALCIUM, SERUM 9.8 mg/dL (8.5-10.1); CARBON DIOXIDE 29 mmol/L (21-32); CHLORIDE 107 mmol/L (98-107); GLUCOSE 114 mg/dL (74-106); SODIUM SERUM 143 mmol/L (136-145); UREA NITROGEN, BLOOD 16 mg/dL (7-18)
[2022-08-18 17:48] LABS: ALANINE AMINOTRANSFERASE 24 U/L (12-78); ALBUMIN 3.5 g/dL (3.4-5.0); ALKALINE PHOSPHATASE 128 U/L (46-116); ASPARTATE AMINOTRANSFERASE 23 U/L (15-37); BILIRUBIN,DIRECT 0.2 mg/dL (0.0-0.2); BILIRUBIN,TOTAL 0.7 mg/dL (0.2-1.0); TOTAL PROTEIN, SERUM 6.9 g/dL (6.4-8.2)
[2022-08-18] MEDS ORDERED: MAGNESIUM HYDROXIDE 30 ML UDC PO PRN (18:00)
[2022-08-18] MEDS ORDERED: TEMAZEPAM 15 MG CAPSULE PO PRN (18:00)
[2022-08-18] MEDS ORDERED: ACETAMINOPHEN 325 MG TABLET PO PRN (18:00)
[2022-08-18] MEDS ORDERED: HYDROCODONE/APAP 5/325MG TABLET PO PRN (18:00)
[2022-08-18] MEDS ORDERED: ONDANSETRON HCL/PF 4 MG/2 ML VIAL IVP PRN (18:00)
[2022-08-18] MEDS ORDERED: Z GUARD REMEDY 4 OZ OINT TP PRN (18:00)
[2022-08-18] MEDS ORDERED: MAG HYDROX/AL HYDROX/SIMETH 30 ML UDC PO PRN (18:00)
[2022-08-18] MEDS ORDERED: MORPHINE SULFATE INJ 2 MG/ML DISP.SYRIN IV PRN (18:00)
--- NOTE | 2022-08-18 18:09 | NUR ---
ED [facility] [phone] CELL
[2022-08-18] MEDS ORDERED: ENOXAPARIN SODIUM 80 MG/0.8 ML DISP.SYRIN SQ ONE ×2 (18:30→18:50)
--- NOTE | 2022-08-18 18:49 | NUR ---
room 107 after shift change
--- NOTE | 2022-08-18 19:42 | NUR ---
COVID SWAB COLLECTED AND SENT TO LAB
--- NOTE | 2022-08-18 20:23 | NUR ---
REPORT GIVEN TO YVETTE FRITZ ROOM 107 FOR MONICA
--- NOTE | 2022-08-18 21:00 | NUR ---
PATIENT TRANSFERED AND ADMITTED PER ACLS PROTOCOL
[2022-08-18 21:10] VITALS: BP 127/85
--- NOTE | 2022-08-18 21:10 | NUR ---
ADMISSION NOTES, 77 YO MALE ADMITTED FROM ER DEPARTMENT VIA RCHRYSTAL IN COMPANY OF 2 NURSES, PATIENT UNDER MEDICAL SERVICES OF DR FELY REYES DNP, WITH ADMITTING DX CHF EXACERBATION, PATIENT AWAKE A/O X4 KOREAN SPEAKIN, BUT ABLE TO UNDERSTAND AND COMMUNICATE IN [place], AT ROOM AIR NO SOB/ACUTE DISTRESS NOTED AT THIS TIME, WITH O2 SAT LEVEL, 97%, ATTACHED TO TELE MONITOR, IV SALINE LOCK IN LEFT FA 20G PATENT AND INTACT, AFEBRILE SKIN INTACT, BILATERAL HEELS DRYNESS, DAUGHTER AT BEDSIDE, WILL CONTINUE TO MONITOR CLOSELY,ALL SAFETY PRECAUTIONS MAINTAINED, CALL LIGHT W/I REACH.
[2022-08-18] MEDS: METOPROLOL SUCCINATE 50 MG TAB.SR.24H PO SCH (21:20)
[2022-08-18] MEDS ORDERED: LORAZEPAM 0.5 MG TABLET PO ONE (21:45)
--- NOTE | 2022-08-18 21:45 | NUR ---
INFORMED BALDO THAT DAUGHTER IS REQUESTING ATIVAN BECAUSE PATIENT IS TAKING 3X DAY AT HOME 1MG MORNING, 0.5 MG AT 3PM, AND 0.5MG AT NIGHT, ALSO FOR DAUGHTER ELIQUIS IS 2.5MG BID, AND METOPROLOL 25MG BID, BALDO REPLIED WITH ORDER FOR ATIVAN 0.5MG ONCE NOW AND FOLLOW UP WITH SUPERVISOR MOLD CLEANING AND STORAGE TOMORROW FOR THE REST OF THE MEDS, ORDER NOTED AND CARRIED OUT.
--- NOTE | 2022-08-18 21:50 | NUR ---
DAUGHTER REFUSED TO GIVE THE TROPOL SCHEDULED SINCE 1800 TO PATIENT, WILL ENDORSE IN AM TO FOLLOW UP WITH MANAGER HI, DAUGHTER NEEDS EDUCATION REGARDING THE CHANGES OF MEDICATION PER MANAGER HI.
[2022-08-18] MEDS: TAMSULOSIN 0.4 MG CAP.SR.24H PO SCH (22:06)
[2022-08-19] VITALS: BP 100/63
[2022-08-19 04:00] VITALS: BP 133/66
[2022-08-19 05:45] LABS: BASOPHILS % (AUTO) 0.7 % (0.0-2.0); EOSINOPHILS % (AUTO) 2.1 % (0.0-6.0); HEMATOCRIT 42 % (39-51); HEMOGLOBIN 13.5 g/dL (13.5-17.5); LYMPHOCYTES # (AUTO) 0.9 K/uL (0.8-4.8); LYMPHOCYTES % (AUTO) 18.8 % (20.0-44.0); MEAN CORPUSCULAR HGB CONC 32 g/dl (31.0-36.0); MEAN CORPUSCULAR VOLUME 97 fL (80-96); MONOCYTES # (AUTO) 0.6 K/uL (0.1-1.30); MONOCYTES % (AUTO) 11.9 % (2.0-12.0); NEUTROPHILS # (AUTO) 3.1 K/uL (1.8-8.9); NEUTROPHILS % (AUTO) 66.5 % (43.0-81.0); PLATELET COUNT (AUTO) 115 K/uL (150-450); RED BLOOD CELL COUNT(AUTO) 4.36 MIL/uL (4.5-6.0); WHITE BLOOD COUNT (AUTO) 4.7 K/uL (4.3-11.0)
[2022-08-19 05:55] LABS: CALCIUM, SERUM 9.6 mg/dL (8.5-10.1); CARBON DIOXIDE 29 mmol/L (21-32); CHLORIDE 108 mmol/L (98-107); CREATININE 0.8 mg/dL (0.6-1.3); GLUCOSE 102 mg/dL (74-106); PHOSPHORUS 3.1 mg/dL (2.5-4.9); POTASSIUM 3.4 mmol/L (3.5-5.1); SODIUM SERUM 144 mmol/L (136-145); UREA NITROGEN, BLOOD 15 mg/dL (7-18)
[2022-08-19 06:11] LABS: CHOLESTEROL 130 mg/dL (<200); HDL CHOLESTEROL 62 mg/dL (40-60); LDL 65 mg/dL (0-99); TRIGLYCERIDES 48 mg/dL (30-150)
--- NOTE | 2022-08-19 06:22 | NUR ---
END OF SHIFT, PATIENT AWAKE A/O X4, KHMER SPEAKING, UNDERSTAND [place], SITTING ON CHAIR, AT 2LPM VIA NC, NO SOB/ACUTE DISTRESS NOTED, AFIB CONTROLLED IN TELE MONITOR, FEW HOURS OF SLEEP, DESPITE ATIVAN LAST NIGHT, REFUSED SLEEPING PILL, REFUSED BED ALARM, REFUSED TO USE URINAL, PREFERRED TO USE RESTROOM, LIVES AT HOME ALONE, HE IS VERY INDEPENDENT, AND REFUSED TO BED ALARM, OTHERWISE MAINTAINED O2 SAT LEVEL >94%, CALL LIGHT W/I REACH, S/R OF BED P X2, WILL ENDORSE CONTINUITY OF CARE TO ONCOMING NURSE.
--- NOTE | 2022-08-19 06:46 | NUR ---
INFORMED DR PERAZA REGARDING CRITICAL FOR TROPONIN 396 THIS MORNING, SAME LEVEL YESTERDAY ON ADMISSION, NO NEW ORDERS RECEIVED.
--- NOTE | 2022-08-19 07:00 | NUR ---
RN NOTE RECEIVED PATIENT IN BED RESTING ALERT ORIENTED X3 SERBIAN SPEAKING,ON ROOM AIR O2:93% IV SITE IS ON LEFT FOREARM INTACT PATENT,CONTIENT BOWEL/BLADDER,SAFETY MEASURE IMPLEMENT BED IN LOW POSITION AND LOCKED,PATIENT REFUSED BED ALARM,CALL LIGHT WITHIN REACH CONTINUE TO MONITOR.
[2022-08-19] MEDS: PANTOPRAZOLE 40 MG TABLET.DR PO SCH (07:32)
[2022-08-19] MEDS: POTASSIUM CHLORIDE 20 MEQ TAB.PRT.SR PO SCH ×3 (08:28→09:55)
[2022-08-19] MEDS: FUROSEMIDE 40 MG/4 ML VIAL IV SCH ×3 (08:28→16:08)
[2022-08-19] MEDS: DILTIAZEM HCL CD 240 MG PO SCH (08:29)
[2022-08-19] MEDS: APIXABAN 5 MG TABLET PO SCH ×2 (08:32→16:10)
[2022-08-19] MEDS ORDERED: ASPIRIN 81 MG TAB.CHEW PO SCH (09:00)
[2022-08-19] MEDS ORDERED: FUROSEMIDE 40 MG/4 ML VIAL IV SCH (09:00)
[2022-08-19] MEDS ORDERED: POTA10TA10 PO (10:41)
[2022-08-19] MEDS ORDERED: LORA-259 PO (10:41)
[2022-08-19] MEDS ORDERED: APIX2.5T PO (10:41)
[2022-08-19] MEDS ORDERED: METO25TA3 PO (10:41)
[2022-08-19] MEDS ORDERED: LORAZEPAM 1 MG TABLET PO ONE (11:00)
[2022-08-19] MEDS ORDERED: NITROGLYCERIN 0.4 MG/TAB BOTTLE SL PRN (11:30)
[2022-08-19 12:00] VITALS: BP 120/77
[2022-08-19] MEDS: LORAZEPAM 0.5 MG TABLET PO SCH ×2 (15:02→20:02)
[2022-08-19 16:00] VITALS: BP 106/66
[2022-08-19] MEDS: ARIPIPRAZOLE 2 MG TABLET PO SCH (16:11)
[2022-08-19] MEDS: ATORVASTATIN 40 MG TABLET PO SCH (17:51)
[2022-08-19] MEDS: METOPROLOL SUCCINATE 50 MG TAB.SR.24H PO SCH (17:51)
[2022-08-19] MEDS ORDERED: TAMSULOSIN 0.4 MG CAP.SR.24H PO SCH (18:00)
--- NOTE | 2022-08-19 18:18 | NUR ---
RN NOTE PATIENT REMAINS ON ALERT ORIENTED X3 VERBALLY RESPONSIVE NO SOB NOT ACUTE DISTRESS NOTED,AMBULATORY,CONTIENT BOWEL/BLADDER ALL DUE MEDS GIVEN MD ORDERED,KEPT HEAD OF THE BED ELEVATED ALL THE TIME,KEPT CALL LIGHT WITHIN REACH ALL NEEDS MET ENDORSE NEXT COMING SHIFT FOR CONTINUATION OF CARE.
--- NOTE | 2022-08-19 19:30 | NUR ---
WALKING DRAGLINE OPERATOR OPENING NOTES RECEIVED PATIENT AWAKE AND WALKING. PATIENT IS A/O TIMES 4. [place] SPEAKER. NO PAIN NOTED. NO SOB NOTED. NO DISTRESS NOTED. DAUGHTER AT BED SIDE. ON TELE MONITOR READING CONTROLLED AFIB HR=87. IV ACCESS ON THE LFA G # 20 INTACT . NOTED BILATERAL LEG SWELLING. PATIENT REFUSED LEGS ELEVATION AND BANDAGE COVEREAGE FOR PUSHING THE FLUIDS UP. ALL NEEDS ATTENDED. ALL SAFETY MEASURES IN PLACE. BED LOCKED IN THE LOWEST POSITION. CALL LIGHT AND TABLE IN EASY REACH. SIDE RAILS UP TIMES 2. WILL CONTINUE TO MONITOR CLOSELY.
[2022-08-19 20:00] VITALS: BP 108/66
[2022-08-19] MEDS ORDERED: METOPROLOL SUCCINATE 25 MG TAB.SR.24H PO SCH (21:00)
[2022-08-19] MEDS ORDERED: APIXABAN 2.5 MG TABLET PO SCH (21:00)
[2022-08-19] MEDS: TAMSULOSIN 0.4 MG CAP.SR.24H PO SCH (21:01)
[2022-08-20] VITALS: BP 147/98
[2022-08-20 04:00] VITALS: BP 112/78
--- NOTE | 2022-08-20 06:50 | NUR ---
RESIDENTIAL SPECIALIST CLOSING NOTES PATIENT AWAKE AND WALKING. PATIENT IS A/O TIMES 4. GERMAN SPEAKER. NO PAIN NOTED. NO SOB NOTED. NO DISTRESS NOTED. ON TELE MONITOR READING CONTROLLED AFIB HR=58. IV ACCESS ON THE LFA G # 20 INTACT . NOTED BILATERAL LEG SWELLING. PATIENT REFUSED LEGS ELEVATION AND BANDAGE COVERAGE FOR PUSHING THE FLUIDS UP. ALL DUE MEDS GIVEN ORDERED. ALL NEEDS ATTENDED. ALL SAFETY MEASURES IN PLACE. BED LOCKED IN THE LOWEST POSITION. CALL LIGHT AND TABLE IN EASY REACH. SIDE RAILS UP TIMES 2. WILL ENDORSE FOR MONICA.
--- NOTE | 2022-08-20 07:15 | NUR ---
RN NOTE RECEIVED PATIENT IN BED RESTING ALERT ORIENTED X4 VERBALLY RESPONSIVE ON 2L OXYGEN VIA NASAL CANNULA O2:95% IV ACCESS ON LEFT FOREARM INTACT PATENT,CONTIENT BOWEL/BLADDER,SAFETY MEASURE IMPLEMENT BED IN LOW POSITION AND LOCKED,PATIENT REFUSED BED ALARM CONTINUE TO MONITOR.
[2022-08-20 07:20] LABS: BASOPHILS % (AUTO) 0.4 % (0.0-2.0); EOSINOPHILS % (AUTO) 2.3 % (0.0-6.0); HEMATOCRIT 42 % (39-51); HEMOGLOBIN 13.9 g/dL (13.5-17.5); LYMPHOCYTES # (AUTO) 0.9 K/uL (0.8-4.8); LYMPHOCYTES % (AUTO) 15.7 % (20.0-44.0); MEAN CORPUSCULAR HGB CONC 33 g/dl (31.0-36.0); MEAN CORPUSCULAR VOLUME 96 fL (80-96); MONOCYTES # (AUTO) 0.6 K/uL (0.1-1.30); MONOCYTES % (AUTO) 11.9 % (2.0-12.0); NEUTROPHILS # (AUTO) 3.8 K/uL (1.8-8.9); NEUTROPHILS % (AUTO) 69.7 % (43.0-81.0); PLATELET COUNT (AUTO) 116 K/uL (150-450); RED BLOOD CELL COUNT(AUTO) 4.37 MIL/uL (4.5-6.0); WHITE BLOOD COUNT (AUTO) 5.5 K/uL (4.3-11.0)
[2022-08-20 07:42] LABS: ALANINE AMINOTRANSFERASE 14 U/L (12-78); ALBUMIN 3.5 g/dL (3.4-5.0); ALKALINE PHOSPHATASE 122 U/L (46-116); ASPARTATE AMINOTRANSFERASE 19 U/L (15-37); BILIRUBIN,TOTAL 0.8 mg/dL (0.2-1.0); CALCIUM, SERUM 9.8 mg/dL (8.5-10.1); CARBON DIOXIDE 30 mmol/L (21-32); CHLORIDE 108 mmol/L (98-107); CREATININE 0.8 mg/dL (0.6-1.3); GLUCOSE 118 mg/dL (74-106); MAGNESIUM 2.2 mg/dL (1.8-2.4); POTASSIUM 3.5 mmol/L (3.5-5.1); SODIUM SERUM 144 mmol/L (136-145); TOTAL PROTEIN, SERUM 6.8 g/dL (6.4-8.2); UREA NITROGEN, BLOOD 14 mg/dL (7-18)
[2022-08-20] MEDS: PANTOPRAZOLE 40 MG TABLET.DR PO SCH (07:50)
[2022-08-20 08:00] VITALS: BP 128/72
[2022-08-20] MEDS: POTASSIUM CHLORIDE 10 MEQ TABLET.SA PO SCH (08:38)
[2022-08-20] MEDS: FERROUS SULFATE (325 MG) 325 MG/TAB TABLET PO SCH (08:38)
[2022-08-20] MEDS: DILTIAZEM HCL CD 240 MG PO SCH (08:39)
[2022-08-20] MEDS: APIXABAN 5 MG TABLET PO SCH ×2 (08:41→16:33)
[2022-08-20] MEDS: LORAZEPAM 1 MG TABLET PO SCH (08:58)
[2022-08-20] MEDS ORDERED: CLOPIDOGREL BISULFATE 75 MG TABLET PO SCH (09:00)
[2022-08-20] MEDS ORDERED: LORAZEPAM 1 MG TABLET PO SCH (09:00)
[2022-08-20] MEDS: POTASSIUM CHLORIDE 20 MEQ TAB.PRT.SR PO SCH ×3 (10:10→12:47)
[2022-08-20] MEDS: FUROSEMIDE 40 MG/4 ML VIAL IV SCH ×3 (10:10→16:32)
[2022-08-20 12:00] VITALS: BP 103/72
[2022-08-20] MEDS: LORAZEPAM 0.5 MG TABLET PO SCH ×2 (15:16→21:10)
[2022-08-20 16:00] VITALS: BP 129/67
[2022-08-20] MEDS: ARIPIPRAZOLE 2 MG TABLET PO SCH (16:32)
[2022-08-20] MEDS: METOPROLOL SUCCINATE 50 MG TAB.SR.24H PO SCH (17:40)
[2022-08-20] MEDS: ATORVASTATIN 40 MG TABLET PO SCH (17:40)
--- NOTE | 2022-08-20 18:51 | NUR ---
RN NOTE PATIENT REMAINS ALERT ORIENTED X4 VERBALLY RESPONSIVE NO SOB NOT ACUTE DISTRESS NOTED ON 2L OXYGEN VIA NASAL CANNULA,O2:98%,ALL DUE MEDS GIVEN MD ORDERED KEPT CLEAN AND DRY ,KEPT CALL LIGHT WITHIN REACH,WILL ENDORSE NEXT COMING SHIFT FOR CONTINUATION OF CARE.
--- NOTE | 2022-08-20 19:30 | NUR ---
UTILITY PERSON OPENING NOTE RECEIVED PATIENT IN BED, AWAKE, A/O X 4, ABLE TO VERBALIZE NEEDS. SPEAKS MOSTLY CHADIAN. SON IN LAW ON BED SIDE. PT IS AMBULATORY WITH BRP. CURRENTLY ON RA, TOLERATING WELL. SATING @ 98%. NO S/SX OF ACUTE RESPI DISTRESS NOTED AT THIS TIME. NO SOB, BREATHING IS EVEN AND UNLABORED. TELE MONITOR READS CONTROLLED AFIB WITH HR IN 90s. IV ACCESS ON THE LFA, #20g, SL, PATENT, INTACT AND FLUSHES WELL . SWELLING ON BILATERAL LEGS NOTED. ALL SAFETY MEASURES IN PLACE. BED LOCKED IN THE LOWEST POSITION. CALL LIGHT AND TABLE WITHIN EASY REACH. HOB ELEVATED, SR UP X 2. WILL CONTINUE TO MONITOR CLOSELY.
[2022-08-20 20:00] VITALS: BP 100/66
[2022-08-20] MEDS: TAMSULOSIN 0.4 MG CAP.SR.24H PO SCH (21:10)
[2022-08-21] VITALS: BP 102/68
[2022-08-21 04:00] VITALS: BP 102/57
--- NOTE | 2022-08-21 06:13 | NUR ---
REFRACTORY FURNACE DESIGNER CLOSING NOTE NO SIGNIFICANT CHANGE T/O THE NIGHT. PT REMAINED STABLE. ALL DUE MEDS GIVEN ORDERED. ALL NEEDS ATTENDED. ALL SAFETY MEASURES IN PLACE. WILL ENDORSE TO AM SHIFT NURSE FOR MONICA.
[2022-08-21 06:54] LABS: BASOPHILS % (AUTO) 0.6 % (0.0-2.0); EOSINOPHILS % (AUTO) 2.8 % (0.0-6.0); HEMATOCRIT 43 % (39-51); HEMOGLOBIN 13.7 g/dL (13.5-17.5); LYMPHOCYTES # (AUTO) 0.7 K/uL (0.8-4.8); LYMPHOCYTES % (AUTO) 13.3 % (20.0-44.0); MEAN CORPUSCULAR HGB CONC 32 g/dl (31.0-36.0); MEAN CORPUSCULAR VOLUME 98 fL (80-96); MONOCYTES # (AUTO) 0.7 K/uL (0.1-1.30); MONOCYTES % (AUTO) 12.6 % (2.0-12.0); NEUTROPHILS % (AUTO) 70.7 % (43.0-81.0); PLATELET COUNT (AUTO) 129 K/uL (150-450); RED BLOOD CELL COUNT(AUTO) 4.38 MIL/uL (4.5-6.0); WHITE BLOOD COUNT (AUTO) 5.6 K/uL (4.3-11.0)
--- NOTE | 2022-08-21 06:58 | NUR ---
LIGHT RAIL TRAIN OPERATOR OPENING NOTE RECEIVED PATIENT IN CHAIR, AWAKE, A/O X 4, ABLE TO VERBALIZE NEEDS. SPEAKS MOSTLY CHADIAN. PT IS AMBULATORY WITH BRP. CURRENTLY ON RA, TOLERATING WELL. SATING @ 97%. NO S/SX OF ACUTE RESPI DISTRESS NOTED AT THIS TIME. NO SOB, BREATHING IS EVEN AND UNLABORED. TELE MONITOR READS CONTROLLED AFIB WITH HR IN 90s. IV ACCESS ON THE LFA, #20g, SL, PATENT, INTACT AND FLUSHES WELL . SWELLING ON BILATERAL LEGS NOTED.ALL SAFETY MEASURES IN PLACE. BED LOCKED IN THE LOWEST POSITION. CALL LIGHT AND TABLE WITHIN EASY REACH. . WILL CONTINUE TO MONITOR CLOSELY.
[2022-08-21 07:14] LABS: ALANINE AMINOTRANSFERASE 16 U/L (12-78); ALBUMIN 3.4 g/dL (3.4-5.0); ALKALINE PHOSPHATASE 125 U/L (46-116); ASPARTATE AMINOTRANSFERASE 19 U/L (15-37); BILIRUBIN,TOTAL 0.6 mg/dL (0.2-1.0); CALCIUM, SERUM 9.8 mg/dL (8.5-10.1); CARBON DIOXIDE 29 mmol/L (21-32); CHLORIDE 107 mmol/L (98-107); CREATININE 0.8 mg/dL (0.6-1.3); GLUCOSE 108 mg/dL (74-106); MAGNESIUM 2.2 mg/dL (1.8-2.4); POTASSIUM 3.8 mmol/L (3.5-5.1); SODIUM SERUM 143 mmol/L (136-145); TOTAL PROTEIN, SERUM 6.9 g/dL (6.4-8.2); UREA NITROGEN, BLOOD 20 mg/dL (7-18)
[2022-08-21] MEDS: PANTOPRAZOLE 40 MG TABLET.DR PO SCH (07:27)
[2022-08-21 08:15] VITALS: BP 115/67
[2022-08-21] MEDS: DILTIAZEM HCL CD 240 MG PO SCH (08:19)
[2022-08-21] MEDS: FERROUS SULFATE (325 MG) 325 MG/TAB TABLET PO SCH (08:19)
[2022-08-21] MEDS: LORAZEPAM 1 MG TABLET PO SCH (08:19)
[2022-08-21] MEDS: POTASSIUM CHLORIDE 10 MEQ TABLET.SA PO SCH (08:20)
[2022-08-21] MEDS: APIXABAN 5 MG TABLET PO SCH (08:22)
[2022-08-21] MEDS ORDERED: FUROSEMIDE 40 MG TABLET PO SCH (09:30)
[2022-08-21] MEDS ORDERED: METO50TA7 PO (10:49)
[2022-08-21] MEDS ORDERED: FURO40TA5 PO (10:49)
[2022-08-21] MEDS ORDERED: DILT240C88 PO (10:49)
[2022-08-21 12:00] VITALS: BP 135/75
== END 2022-08-21 13:01 | disposition home health service (06) | DRG 280 ==
LOC: ER 16:35 → TELE1 19:59
PROVIDERS: ADMIT Nurse Practitioner Acute Care; ATTEND Student in an Organized Health Care Education/Training Program
DX: I11.0 Hypertensive heart disease with heart failure (principal); I21.A1 Myocardial infarction type 2; I50.33 Acute on chronic diastolic (congestive) heart failure; I48.20 Chronic atrial fibrillation, unspecified; J98.11 Atelectasis; I34.0 Nonrheumatic mitral (valve) insufficiency; Z79.01 Long term (current) use of anticoagulants; I25.10 Atherosclerotic heart disease of native coronary artery without angina pectoris; Z95.5 Presence of coronary angioplasty implant and graft; D69.6 Thrombocytopenia, unspecified; E66.9 Obesity, unspecified; Z68.28 Body mass index [BMI] 28.0-28.9, adult; M54.16 Radiculopathy, lumbar region; G89.29 Other chronic pain; Z79.02 Long term (current) use of antithrombotics/antiplatelets; Z79.899 Other long term (current) drug therapy; N40.0 Benign prostatic hyperplasia without lower urinary tract symptoms
CPT/HCPCS: 36415; 71045-TC; 80048-TC; 80053-TC; 80061-TC; 80076-TC; 83735-TC; 83880; 84100-TC; 84484-TC; 85025-TC; 87081-TC; 93307-TC; 93970-TC; C9803; G0378; J1650; J1940

== ENCOUNTER 2022-08-26 14:47 | Inpatient (IN) | payer MEDICARE, OTHER ==
[~2022-08-26] VITALS: Ht 165.1 cm; Wt 86.2 kg
[~2022-08-26 14:47] MED LIST changes: +APIX2.5T PO; -APIX5TAB PO; -Aspirin Ec PO; -BUME1TAB8 PO; -FERR325T23 PO; +FURO40TA5 PO; -Hydrocodone/Apap 5/325MG PO; +LORA-259 PO; -OSEL75CA PO; +POTA10TA10 PO; -POTA20TA10 PO
[2022-08-26 15:54] LABS: BASOPHILS % (AUTO) 0.8 % (0.0-2.0); EOSINOPHILS % (AUTO) 2.9 % (0.0-6.0); HEMATOCRIT 42 % (39-51); HEMOGLOBIN 13.7 g/dL (13.5-17.5); LYMPHOCYTES % (AUTO) 16.7 % (20.0-44.0); MEAN CORPUSCULAR HGB CONC 32 g/dl (31.0-36.0); MEAN CORPUSCULAR VOLUME 96 fL (80-96); MONOCYTES # (AUTO) 0.7 K/uL (0.1-1.30); MONOCYTES % (AUTO) 12.3 % (2.0-12.0); NEUTROPHILS % (AUTO) 67.3 % (43.0-81.0); PLATELET COUNT (AUTO) 159 K/uL (150-450); RED BLOOD CELL COUNT(AUTO) 4.42 MIL/uL (4.5-6.0); WHITE BLOOD COUNT (AUTO) 5.9 K/uL (4.3-11.0)
[2022-08-26 16:08] LABS: CALCIUM, SERUM 9.9 mg/dL (8.5-10.1); CARBON DIOXIDE 33 mmol/L (21-32); CHLORIDE 110 mmol/L (98-107); CREATININE 0.9 mg/dL (0.6-1.3); GLUCOSE 105 mg/dL (74-106); POTASSIUM 3.7 mmol/L (3.5-5.1); SODIUM SERUM 146 mmol/L (136-145); UREA NITROGEN, BLOOD 17 mg/dL (7-18)
--- NOTE | 2022-08-26 16:10 | NUR ---
covid swab sent to lab
[2022-08-26 16:14] LABS: ALANINE AMINOTRANSFERASE 28 U/L (12-78); ALBUMIN 3.5 g/dL (3.4-5.0); ALKALINE PHOSPHATASE 138 U/L (46-116); ASPARTATE AMINOTRANSFERASE 22 U/L (15-37); BILIRUBIN,DIRECT 0.2 mg/dL (0.0-0.2); BILIRUBIN,TOTAL 0.4 mg/dL (0.2-1.0); TOTAL PROTEIN, SERUM 7.1 g/dL (6.4-8.2)
[2022-08-26] MEDS ORDERED: FUROSEMIDE 40 MG/4 ML VIAL IV ONE (17:00)
[2022-08-26] MEDS ORDERED: ASPIRIN 325 MG TABLET PO ONE (17:00)
[2022-08-26] MEDS ORDERED: ASPIRIN EC 325 MG TABLET.DR PO ONE (17:01)
--- NOTE | 2022-08-26 17:32 | NUR ---
bed assigned= 112-2
--- NOTE | 2022-08-26 18:32 | NUR ---
REPORT GIVEN TO KAI FRITZ RM 112-2
--- NOTE | 2022-08-26 18:50 | NUR ---
PATIENT NOT YET ARRIVED FROM ER. ADMISSION ENDORSED TO LAM HAIRSTON FOR CONTINUATION OF CARE.
--- NOTE | 2022-08-26 19:15 | NUR ---
REPORT REC'D FROM MATILDE FRITZ
--- NOTE | 2022-08-26 19:45 | NUR ---
PT TRANSPORTED TO 1ST FLOOR VIA ACLS PROTOCOL
--- NOTE | 2022-08-26 19:45 | NUR ---
DRAPERY WORKER NOTES: PT TRANSFERRED TO [facility] FROM ER. PLACED IN ROOM 112 BED 2. PT AWAKE, ALERT/ORIENTED X4 AND VERBALLY RESPONSIVE. ON ROOM AIR AND PT TOLERATED WELL. O2 SAT 97%. IV ACCESS ON LAC#20G INTACT AND PATENT. NO S/S OF INFILTRATIONS, BODY ASSESSMENT DONE. NO OPEN SKIN OR SKIN DISCOLORATIONS NOTED. NOTED PITTING EDEMA +3 ON FEET. C/O SLIGHT CHEST PAIN 2/10. NO ACUTE DISTRESS. COOPERATIVE WITH CARE. PT IS AMBULATORY TO THE RESTROOM. ALL SAFETY MEASURES IN PLACE. BED IN LOWEST POSITION AND LOCKED. SIDE RAILS X2, PLACE CALL LIGHT WITH IN REACH. WILL CONTINUE TO MONITOR
[2022-08-26 20:00] VITALS: BP 120/75
[2022-08-26] MEDS ORDERED: Z GUARD REMEDY 4 OZ OINT TP PRN (20:00)
[2022-08-26] MEDS ORDERED: ONDANSETRON HCL/PF 4 MG/2 ML VIAL IVP PRN (20:00)
[2022-08-27] VITALS: BP 125/80
--- NOTE | 2022-08-27 01:14 | NUR ---
RN NOTES: PT IS FEELING ANXIOUS. NOTIFIED DR. MARRUFO, ORDER-ATIVAN 1 MG TAB PO ONE TIME. ORDER NOTED AND CARRIED OUT.
[2022-08-27] MEDS ORDERED: LORAZEPAM 1 MG TABLET PO ONE (01:30)
[2022-08-27] MEDS: ACETAMINOPHEN 325 MG TABLET PO PRN ×2 (02:48→15:07)
--- NOTE | 2022-08-27 02:51 | NUR ---
RN NOTES: PT IS C/O HEADACHE, TYLENOL 650 MG GIVEN AND PT TOLERATED WELL. WILL CONTINUE TO MONITOR
[2022-08-27 04:00] VITALS: BP 126/73
--- NOTE | 2022-08-27 06:32 | NUR ---
RN CLOSING NOTES: PT AWAKE, ALERT/ORIENTED X4 AND VERBALLY RESPONSIVE. SITTING ON THE CHAIR. ON ROOM AIR AND PT TOLERATED WELL. O2 SAT 99%. IV ACCESS ON LAC#20G INTACT AND PATENT. NO S/S OF INFILTRATIONS, NO C/O PAIN OR DISCOMFORT. NO ACUTE DISTRESS. COOPERATIVE WITH CARE. AMBULATORY TO THE RESTROOM. NO SIGNIFICANT CHANGES DURING THIS SHIFT. ALL SAFETY MEASURES IN PLACE. BED IN LOWEST POSITION AND LOCKED. SIDE RAILS X2, PLACE CALL LIGHT WITH IN REACH. WILL ENDORSE TO MORNING SHIFT NURSE.
--- NOTE | 2022-08-27 07:27 | NUR ---
GRE INSTRUCTOR OPENING NOTE RECEIVED PATIENT SITTING IN THE CHAIR. A/O X 4, ABLE TO MAKE NEEDS KNOWN. ON ROOM AIR, TOLERATING WELL. ON DRAW STRING KNOTTER WITH CURRENT READING OF AFIB. NO C/O PAIN OR DISCOMFORT AT THIS TIME. IV ACCESS ON THE LAC #20G, SL. SAFETY MEASURES IMPLEMENTED: BED IN LOWEST LOCKED POSITION, SIDE RAILS UP X 2, CALL LIGHT AND TRAY TABLE WITHIN EASY REACH. WILL CONTINUE TO MONITOR.
[2022-08-27] MEDS ORDERED: NITROGLYCERIN 0.4 MG/TAB BOTTLE SL PRN (07:30)
[2022-08-27 08:00] VITALS: BP 146/73
[2022-08-27] MEDS: PANTOPRAZOLE 40 MG TABLET.DR PO SCH (08:45)
[2022-08-27] MEDS: CLOPIDOGREL BISULFATE 75 MG TABLET PO SCH (08:48)
[2022-08-27] MEDS: POTASSIUM CHLORIDE 10 MEQ TABLET.SA PO SCH (08:48)
[2022-08-27] MEDS: DILTIAZEM HCL CD 240 MG PO SCH (08:48)
[2022-08-27] MEDS: METOPROLOL SUCCINATE 50 MG TAB.SR.24H PO SCH (08:48)
[2022-08-27] MEDS: FERROUS SULFATE (325 MG) 325 MG/TAB TABLET PO SCH (08:49)
[2022-08-27] MEDS: FUROSEMIDE 40 MG TABLET PO SCH (08:49)
[2022-08-27] MEDS: APIXABAN 2.5 MG TABLET PO SCH ×2 (08:53→20:22)
[2022-08-27] MEDS: LORAZEPAM 1 MG TABLET PO SCH (08:55)
[2022-08-27 10:05] LABS: BASOPHILS % (AUTO) 0.5 % (0.0-2.0); EOSINOPHILS % (AUTO) 1.9 % (0.0-6.0); HEMATOCRIT 44 % (39-51); HEMOGLOBIN 13.9 g/dL (13.5-17.5); LYMPHOCYTES # (AUTO) 0.9 K/uL (0.8-4.8); LYMPHOCYTES % (AUTO) 16.9 % (20.0-44.0); MEAN CORPUSCULAR HGB CONC 32 g/dl (31.0-36.0); MEAN CORPUSCULAR VOLUME 98 fL (80-96); MONOCYTES # (AUTO) 0.3 K/uL (0.1-1.30); MONOCYTES % (AUTO) 5.3 % (2.0-12.0); NEUTROPHILS % (AUTO) 75.4 % (43.0-81.0); PLATELET COUNT (AUTO) 143 K/uL (150-450); RED BLOOD CELL COUNT(AUTO) 4.46 MIL/uL (4.5-6.0); WHITE BLOOD COUNT (AUTO) 5.3 K/uL (4.3-11.0)
[2022-08-27 10:59] LABS: ALANINE AMINOTRANSFERASE 23 U/L (12-78); ALBUMIN 3.5 g/dL (3.4-5.0); ALKALINE PHOSPHATASE 136 U/L (46-116); ASPARTATE AMINOTRANSFERASE 18 U/L (15-37); BILIRUBIN,DIRECT 0.2 mg/dL (0.0-0.2); BILIRUBIN,TOTAL 0.6 mg/dL (0.2-1.0); CALCIUM, SERUM 9.9 mg/dL (8.5-10.1); CARBON DIOXIDE 31 mmol/L (21-32); CHLORIDE 108 mmol/L (98-107); CREATININE 0.9 mg/dL (0.6-1.3); GLUCOSE 201 mg/dL (74-106); MAGNESIUM 2.2 mg/dL (1.8-2.4); PHOSPHORUS 2.8 mg/dL (2.5-4.9); POTASSIUM 3.2 mmol/L (3.5-5.1); SODIUM SERUM 142 mmol/L (136-145); UREA NITROGEN, BLOOD 17 mg/dL (7-18)
[2022-08-27 12:00] VITALS: BP 125/67
[2022-08-27] MEDS: LORAZEPAM 0.5 MG TABLET PO SCH ×2 (15:02→20:19)
--- NOTE | 2022-08-27 15:10 | NUR ---
RN NOTE PATIENT VERBALIZED HE HAS HEADACHE AND WANTS TYLENOL, TYLENOL 650MG PO PRN GIVEN AT 1507. WILL CONTINUE TO MONITOR.
[2022-08-27] MEDS: ARIPIPRAZOLE 2 MG TABLET PO SCH (15:46)
[2022-08-27 16:00] VITALS: BP 104/67
[2022-08-27] MEDS: TAMSULOSIN 0.4 MG CAP.SR.24H PO SCH (18:09)
[2022-08-27] MEDS: ATORVASTATIN 40 MG TABLET PO SCH (18:09)
--- NOTE | 2022-08-27 19:30 | NUR ---
PREPLEATER OPENING NOTE RECEIVED PATIENT, SITTING ON THE CHAIR, FAMILY ON BED SIDE. PT IS A/O X 4, ABLE TO MAKE NEEDS KNOWN, MOSTLY AMHARIC SPEAKING. CURRENTLY ON ROOM AIR, TOLERATING WELL, SATING @ 99%. NO S/SX OF ACUTE RESPI DISTRESS NOTED AT THIS TIME. NO SOB. BREATHING IS EVEN AND UNLABORED. ON MEDICAL RECORDS CLERK WITH CURRENT READING OF CONTROLLED AFIB, HR 60s. IV ACCESS ON THE LAC #20G, SL. PATENT, INTACT AND FLUSHES WELL. PT NOTED TO HAVE SWELLING ON BILATERAL LOWER LEGS. ALL SAFETY MEASURES IN PLACE: BED IN LOWEST, LOCKED POSITION, SIDE RAILS UP X 2, CALL LIGHT AND TRAY TABLE WITHIN EASY REACH. WILL CONTINUE TO MONITOR.
--- NOTE | 2022-08-27 19:40 | NUR ---
HOSE WRAPPER CLOSING NOTE PATIENT RESTING IN BED. A/O X 4, AMBULATORY. ON ROOM AIR, TOLERATING WELL. ON PARI MUTUAL TICKET CHECKER WITH CURRENT READING OF AFIB. NO C/O PAIN OR DISCOMFORT AT THIS TIME. IV ACCESS ON THE LAC #20G, SL. SAFETY MEASURES IMPLEMENTED: BED IN LOWEST LOCKED POSITION, SIDE RAILS UP X 2, CALL LIGHT AND TRAY TABLE WITHIN EASY REACH. WILL ENDORSE MONICA TO DATA WAREHOUSE ADMINISTRATOR.
[2022-08-27 20:00] VITALS: BP 92/61
[2022-08-28 04:00] VITALS: BP 140/60
--- NOTE | 2022-08-28 05:54 | NUR ---
MANAGER OF PROGRAM CLOSING NOTE NO SIGNIFICANT CHANGE T/O THE NIGHT. PT IN STABLE CONDITION. ALL DUE MEDS GIVEN. ALL NEEDS MET. WILL ENDORSE TO AM SHIFT NURSE FOR MONICA.
[2022-08-28 07:31] LABS: BASOPHILS % (AUTO) 0.5 % (0.0-2.0); EOSINOPHILS % (AUTO) 2.3 % (0.0-6.0); HEMATOCRIT 46 % (39-51); HEMOGLOBIN 14.7 g/dL (13.5-17.5); LYMPHOCYTES # (AUTO) 1.1 K/uL (0.8-4.8); LYMPHOCYTES % (AUTO) 18.2 % (20.0-44.0); MEAN CORPUSCULAR HGB CONC 32 g/dl (31.0-36.0); MEAN CORPUSCULAR VOLUME 97 fL (80-96); MONOCYTES # (AUTO) 0.6 K/uL (0.1-1.30); MONOCYTES % (AUTO) 10.5 % (2.0-12.0); NEUTROPHILS % (AUTO) 68.5 % (43.0-81.0); PLATELET COUNT (AUTO) 156 K/uL (150-450); RED BLOOD CELL COUNT(AUTO) 4.76 MIL/uL (4.5-6.0); WHITE BLOOD COUNT (AUTO) 5.9 K/uL (4.3-11.0)
--- NOTE | 2022-08-28 07:39 | NUR ---
GANG BOSS NOTE RECEIVED PATIENT, SITTING ON THE CHAIR,. PT IS A/O X 4, ABLE TO MAKE NEEDS KNOWN, ALERT ORIENTED. CURRENTLY ON ROOM AIR, TOLERATING WELL, NO SOB. BREATHING IS EVEN AND UNLABORED. ON TURBINE ASSEMBLER WITH CURRENT READING OF CONTROLLED AFIB, HR 67, IV ACCESS ON THE LAC #20G, SL. PATENT, INTACT AND FLUSHES WELL. PT NOTED TO HAVE SWELLING ON BILATERAL LOWER LEGS. ALL SAFETY MEASURES IN PLACE: BED IN LOWEST, LOCKED POSITION, SIDE RAILS UP X 2, CALL LIGHT AND TRAY TABLE WITHIN EASY REACH. WILL CONTINUE TO MONITOR.
[2022-08-28] MEDS: FERROUS SULFATE (325 MG) 325 MG/TAB TABLET PO SCH (07:57)
[2022-08-28] MEDS: CLOPIDOGREL BISULFATE 75 MG TABLET PO SCH (07:59)
[2022-08-28] MEDS: POTASSIUM CHLORIDE 10 MEQ TABLET.SA PO SCH (07:59)
[2022-08-28] MEDS: FUROSEMIDE 40 MG TABLET PO SCH (07:59)
[2022-08-28 08:00] VITALS: BP 129/78
[2022-08-28] MEDS: LORAZEPAM 1 MG TABLET PO SCH (08:00)
[2022-08-28] MEDS: PANTOPRAZOLE 40 MG TABLET.DR PO SCH (08:00)
[2022-08-28] MEDS: DILTIAZEM HCL CD 240 MG PO SCH (08:00)
[2022-08-28] MEDS: METOPROLOL SUCCINATE 50 MG TAB.SR.24H PO SCH (08:00)
[2022-08-28] MEDS: APIXABAN 2.5 MG TABLET PO SCH ×2 (08:11→20:20)
--- NOTE | 2022-08-28 09:00 | NUR ---
telephone lines repairer note seen by dr easley
[2022-08-28] MEDS: SPIRONOLACTONE 25 MG TABLET PO SCH (09:35)
[2022-08-28] MEDS ORDERED: POTASSIUM CHLORIDE 20 MEQ TAB.PRT.SR PO ONE (10:00)
[2022-08-28] MEDS: FUROSEMIDE 40 MG/4 ML VIAL IV SCH ×2 (10:18→20:10)
[2022-08-28 10:25] LABS: ALANINE AMINOTRANSFERASE 22 U/L (12-78); ALBUMIN 3.8 g/dL (3.4-5.0); ALKALINE PHOSPHATASE 145 U/L (46-116); ASPARTATE AMINOTRANSFERASE 20 U/L (15-37); BILIRUBIN,TOTAL 0.6 mg/dL (0.2-1.0); CALCIUM, SERUM 10.1 mg/dL (8.5-10.1); CARBON DIOXIDE 30 mmol/L (21-32); CHLORIDE 108 mmol/L (98-107); GLUCOSE 165 mg/dL (74-106); MAGNESIUM 2.2 mg/dL (1.8-2.4); PHOSPHORUS 3.2 mg/dL (2.5-4.9); POTASSIUM 3.6 mmol/L (3.5-5.1); SODIUM SERUM 145 mmol/L (136-145); TOTAL PROTEIN, SERUM 7.7 g/dL (6.4-8.2); UREA NITROGEN, BLOOD 20 mg/dL (7-18)
--- NOTE | 2022-08-28 11:59 | NUR ---
telegraph plant maintainer note ambulated well in room stand by assistance
[2022-08-28 12:00] VITALS: BP 104/70
--- NOTE | 2022-08-28 14:00 | NUR ---
FURNACE COMBINATION ANALYST NOTE SITTING ON CHAIR ALL NEEDS ATTENDED
[2022-08-28] MEDS: LORAZEPAM 0.5 MG TABLET PO SCH ×2 (14:43→20:22)
--- NOTE | 2022-08-28 15:36 | NUR ---
TRASH COLLECTOR NOTE FEELS SOB ,PLACED ON 2LNC SATURATION 96% AT THIS TIME ,WILL MONITR
[2022-08-28 16:00] VITALS: BP 94/58
[2022-08-28] MEDS: ARIPIPRAZOLE 2 MG TABLET PO SCH (16:00)
[2022-08-28] MEDS: ATORVASTATIN 40 MG TABLET PO SCH (16:45)
[2022-08-28] MEDS: TAMSULOSIN 0.4 MG CAP.SR.24H PO SCH (16:46)
--- NOTE | 2022-08-28 17:50 | NUR ---
IMPREGNATOR NOTE FEELING BETTER ,NO SOB NOTED AT THIS TIME HAVING DINNER , ABLE TO SIT AT EDGE OF BED, ABLE TO EAT SELF, WILL MONITOR
--- NOTE | 2022-08-28 19:30 | NUR ---
TECHNICAL SERVICES CONSULTANT OPENING NOTE RECEIVED PATIENT, SITTING ON THE CHAIR, DAUGHTER ON BED SIDE. PT IS A/O X 4, ABLE TO MAKE NEEDS KNOWN, MOSTLY KYRGYZ SPEAKING. CURRENTLY ON ROOM AIR, TOLERATING WELL, SATING @ 99%. NO S/SX OF ACUTE RESPI DISTRESS NOTED AT THIS TIME. NO SOB. BREATHING IS EVEN AND UNLABORED. ON ZIGZAG STITCHER WITH CURRENT READING OF CONTROLLED AFIB, HR 70s. IV ACCESS ON THE LAC #20G, SL. PATENT, INTACT AND FLUSHES WELL. PT NOTED TO HAVE SWELLING ON BILATERAL LOWER LEGS. ALL SAFETY MEASURES IN PLACE: BED IN LOWEST, LOCKED POSITION, SIDE RAILS UP X 2, CALL LIGHT AND TRAY TABLE WITHIN EASY REACH. WILL CONTINUE TO MONITOR.
[2022-08-28 20:00] VITALS: BP 106/61
--- NOTE | 2022-08-28 23:00 | NUR ---
RN NOTE PT NOTED TO HAVE MINOR BLEEDING IN THE NOSE. NASAL AND ICE PACKING PROVIDED. INFORMED SALESPERSON [place] AND GLASSWARE BENSON. ORDERED TO HOLD ELIQUIS FOR NOW. WILL CARRY OUT.
--- NOTE | 2022-08-28 23:29 | NUR ---
RN NOTE NOSE BLEEDING HAD STOPPED AT THIS TIME. DAUGHTER ARUS INFORMED AND AWARE OF THE SITUATION.
[2022-08-29] VITALS: BP 120/71
[2022-08-29 04:00] VITALS: BP 110/70
--- NOTE | 2022-08-29 06:19 | NUR ---
DIRECTOR OF REGIONAL SALES CLOSING NOTE PT IS CALM AND STABLE AT THIS TIME. NO NOSE BLEEDING NOTED AT THIS TIME. ALL DUE MEDS GIVEN. ALL NEEDS MET. WILL ENDORSE TO AM SHIFT NURSE FOR MONICA.
--- NOTE | 2022-08-29 07:30 | NUR ---
OPENING NOTE RECEIVED PATIENT IN BED RESTING, AWAKE, ALERT, ORIENTEDX3, NO SIGNS OF IN DISTRESS , NO COMPLAINT OF PAIN, SAFETY MEASURES IN PLACED, BED IN LOW POSITION LOCKED, SIDE RAILS UPX3, CALL LIGHT WITHIN REACHED.
[2022-08-29] MEDS: PANTOPRAZOLE 40 MG TABLET.DR PO SCH (07:39)
[2022-08-29] MEDS ORDERED: FURO40TA5 PO (07:48)
[2022-08-29] MEDS ORDERED: SPIR25TA6 PO (07:48)
[2022-08-29] MEDS: METOPROLOL SUCCINATE 50 MG TAB.SR.24H PO SCH (07:49)
[2022-08-29 08:00] VITALS: BP 126/73
[2022-08-29] MEDS: FUROSEMIDE 40 MG/4 ML VIAL IV SCH (08:00)
[2022-08-29 08:01] VITALS: BP 126/73
[2022-08-29] MEDS: FERROUS SULFATE (325 MG) 325 MG/TAB TABLET PO SCH (08:01)
[2022-08-29] MEDS: CLOPIDOGREL BISULFATE 75 MG TABLET PO SCH (08:01)
[2022-08-29] MEDS: SPIRONOLACTONE 25 MG TABLET PO SCH (08:01)
[2022-08-29] MEDS: DILTIAZEM HCL CD 240 MG PO SCH (08:01)
[2022-08-29] MEDS: POTASSIUM CHLORIDE 10 MEQ TABLET.SA PO SCH (08:02)
[2022-08-29] MEDS: APIXABAN 2.5 MG TABLET PO SCH (08:02)
[2022-08-29] MEDS: LORAZEPAM 1 MG TABLET PO SCH (08:04)
[2022-08-29] MEDS ORDERED: FUROSEMIDE 40 MG/4 ML VIAL IV ONE (08:35)
--- NOTE | 2022-08-29 11:42 | NUR ---
REPORT CALLED TO [facility] AND SPOKE TO LEIDY FRITZ
--- NOTE | 2022-08-29 14:30 | NUR ---
PATIENT TRANSFERRED TO [facility] VIA AMBULANCE, PATIENT IS IN STABLE CONDITION.
== END 2022-08-29 14:37 | DRG 291 ==
LOC: ER 15:13 → TELE1 17:52 → MEDSG1 08-28 14:51
PROVIDERS: ADMIT Internal Medicine; ATTEND Internal Medicine
DX: I11.0 Hypertensive heart disease with heart failure (principal); I50.23 Acute on chronic systolic (congestive) heart failure; J98.11 Atelectasis; I48.20 Chronic atrial fibrillation, unspecified; F41.9 Anxiety disorder, unspecified; N40.0 Benign prostatic hyperplasia without lower urinary tract symptoms; E66.9 Obesity, unspecified; Z68.28 Body mass index [BMI] 28.0-28.9, adult; G89.29 Other chronic pain; I25.10 Atherosclerotic heart disease of native coronary artery without angina pectoris; I34.0 Nonrheumatic mitral (valve) insufficiency; M54.16 Radiculopathy, lumbar region; Z79.01 Long term (current) use of anticoagulants; Z79.02 Long term (current) use of antithrombotics/antiplatelets; Z79.899 Other long term (current) drug therapy; Z95.5 Presence of coronary angioplasty implant and graft; M54.50 Low back pain, unspecified; Z20.822 Contact with and (suspected) exposure to COVID-19
CPT/HCPCS: 36415; 71045-TC; 80048-TC; 80053-TC; 80076-TC; 83735-TC; 83880; 84100-TC; 84484-TC; 85025-TC; 87081-TC; C9803; G0378; J1940

== ENCOUNTER 2022-10-08 18:32 | Inpatient (IN) | payer MEDICARE, OTHER ==
[~2022-10-08] VITALS: Ht 152.4 cm; Wt 84.4 kg
[~2022-10-08 18:32] MED LIST changes: +SPIR25TA6 PO
--- NOTE | 2022-10-08 19:15 | NUR ---
Guicho HOFFMANx4, able to express his own concerns. Per pts request, at bedside. Patient c/o chest pressure. No signs of distress or discomfort, patient O2 sats @99% on Room Air. All safety precautions taken, will continue to monitor throughout shift.
[2022-10-08 19:58] LABS: BASOPHILS # (AUTO) 0.1 K/uL (0.0-0.2); BASOPHILS % (AUTO) 1.4 % (0.0-2.0); EOSINOPHILS % (AUTO) 0.4 % (0.0-6.0); HEMATOCRIT 40 % (39-51); HEMOGLOBIN 13.1 g/dL (13.5-17.5); LYMPHOCYTES # (AUTO) 1.1 K/uL (0.8-4.8); LYMPHOCYTES % (AUTO) 19.3 % (20.0-44.0); MEAN CORPUSCULAR HGB CONC 33 g/dl (31.0-36.0); MEAN CORPUSCULAR VOLUME 95 fL (80-96); MONOCYTES # (AUTO) 0.4 K/uL (0.1-1.30); MONOCYTES % (AUTO) 7.9 % (2.0-12.0); PLATELET COUNT (AUTO) 142 K/uL (150-450); WHITE BLOOD COUNT (AUTO) 5.6 K/uL (4.3-11.0)
--- NOTE | 2022-10-08 20:02 | NUR ---
COVID SWAB DONE AND SENT TO LAB
[2022-10-08 20:18] LABS: CALCIUM, SERUM 9.4 mg/dL (8.5-10.1); CARBON DIOXIDE 30 mmol/L (21-32); CHLORIDE 109 mmol/L (98-107); CREATININE 0.9 mg/dL (0.6-1.3); GLUCOSE 125 mg/dL (74-106); POTASSIUM 3.8 mmol/L (3.5-5.1); SODIUM SERUM 144 mmol/L (136-145); UREA NITROGEN, BLOOD 17 mg/dL (7-18)
[2022-10-08 20:33] LABS: ALANINE AMINOTRANSFERASE 23 U/L (12-78); ALBUMIN 3.3 g/dL (3.4-5.0); ALKALINE PHOSPHATASE 93 U/L (46-116); ASPARTATE AMINOTRANSFERASE 13 U/L (15-37); BILIRUBIN,DIRECT 0.2 mg/dL (0.0-0.2); BILIRUBIN,TOTAL 0.7 mg/dL (0.2-1.0); TOTAL PROTEIN, SERUM 6.7 g/dL (6.4-8.2)
[2022-10-08] MEDS ORDERED: FUROSEMIDE 40 MG/4 ML VIAL ONE (20:57)
[2022-10-08] MEDS ORDERED: MAG HYDROX/AL HYDROX/SIMETH 30 ML UDC PO PRN (21:00)
[2022-10-08] MEDS ORDERED: MAGNESIUM HYDROXIDE 30 ML UDC PO PRN (21:00)
[2022-10-08] MEDS ORDERED: ZOLPIDEM TARTRATE 5 MG TABLET PO PRN (21:00)
[2022-10-08] MEDS ORDERED: Z GUARD REMEDY 4 OZ OINT TP PRN (21:00)
[2022-10-08] MEDS ORDERED: FUROSEMIDE 40 MG/4 ML VIAL IV ONE (21:00)
[2022-10-08] MEDS ORDERED: ONDANSETRON HCL/PF 4 MG/2 ML VIAL IVP PRN (21:00)
[2022-10-08] MEDS: LORAZEPAM 0.5 MG TABLET PO SCH ×2 (21:00→22:00)
--- NOTE | 2022-10-08 21:02 | NUR ---
Administered lasix as ordered, and provided urinal, son and father state pt will not be using urinal and will be walking to bathroom. Educated patient and son(bedside) on fall precautions.
[2022-10-08] MEDS ORDERED: CEFTRIAXONE 1 G in IV D5W 50 ML IV SCH (21:30)
--- NOTE | 2022-10-08 21:40 | NUR ---
Report given to KrystinaWKeshia RN
[2022-10-08] MEDS ORDERED: VANCOMYCIN 1.5 GM in IV D5W 500ml IV ONE (22:00)
[2022-10-08] MEDS: APIXABAN 2.5 MG TABLET PO SCH ×2 (22:00→22:01)
--- NOTE | 2022-10-08 22:00 | NUR ---
hangersmith notes Received Pt from ER. Pt is alert and orientedX4. Pt speaks Moroccan and able to make needs known. Pt's son named Maxim at the bedside. Ambulates with a steady gait refuses surgical assistant. On room air. No SOB. No S/S of distress noted. tele monitor showed afib controlled. VS is stable. Skin assessment is done and performed. Noted BLE swelling. Pictures are taken. Wound care ordered. MD is aware. Pt's belonging was checked by ALLIE Madrid and signed by Pt's son Maxim. Reorient Pt to the room and the use of call light. Pt verbalized understanding. safety precautions is maintained. bed at low position, brakes locked, side rails upX2, hob elevated and call light is within reach. Will continue to monitor.
--- NOTE | 2022-10-08 22:08 | NUR ---
RN notes Held eliquis and ativan per Pt. Pt informed that Pt was taking eliquis twice today. Dr. Avalos is aware and informed. Pt also took ativan at 2030 pm. is aware and informed. Pt's son at the bedside. Returned eliquis and ativan at the [facility].
[2022-10-08] MEDS ORDERED: CEFTRIAXONE 1GM BAG (ER ONLY) 50 ML IV ONE (22:37)
[2022-10-08 23:00] VITALS: BP 135/91
[2022-10-08] MEDS ORDERED: VANCOMYCIN 1 GM /D5W 250 ML PB IV ONE (23:10)
--- NOTE | 2022-10-08 23:13 | NUR ---
RN notes Received kavin mcclellan from charge nurse.
[2022-10-09] VITALS: BP 108/87
--- NOTE | 2022-10-09 00:53 | NUR ---
RN notes Received a critical lab from [facility], for troponin 273. Informed and notify Dr. Avalos. informed no new orders. . Charge nurse is aware and informed. will continue to monitor,
[2022-10-09 04:00] VITALS: BP_SYST 125; BP_SYST 130; BP_DIAS 74; BP_DIAS 87
--- NOTE | 2022-10-09 06:30 | NUR ---
RN closing notes Pt is resting in bed comfortably. Pt is alert and orientedX4. On room air. No SOB. No S/S of distress noted. Vs is stable. Tele monitor showed afib controlled hr at 70. IV site at RFA# 20 is clean, intact, flushes well and SL. Routine meds were given as ordered. Kept Pt clean, dry and comfortable. safety precautions is maintained. Bed at low position, brakes locked, side rails upX2, hob elevated, urinal at the bedside, bed alarm is on and call light is within reach. Will endorse to am nurse for MONICA.
--- NOTE | 2022-10-09 07:00 | NUR ---
PRODUCTION CONTROL SPECIALIST OPENING NOTES: RECEIVED PT IN BED AWAKE ALERTT AND ORIENTED X 4 BELARUSIAN SPEAKING BUT ABLE TO UNDERSTAND AND COMMUNICATE IN PARAGUAYAN. NO SOB OR CARDIAC DISTRESS NOTED ON ROOM AIR AND SATURATING WELL. ON TELE MONITOR WITH CURRENT READING OF CONTROLLED AFIB @70BPM. PT DENIES PAIN AT THIS TIME. NOTED WITH BLE EDEMA. IV ACCESS ON RFA GAUGE 20 PATENT,INTACT AND SALINE LOCKED. SAFETY MEASURES MAINTAINED BED LOCKED AND IN LOWEST POSITION, SIDE RAILS UP X 2. CALL LIGHT IN EASY REACH AND WILL MONITOR PT ACCORDINGLY.
--- NOTE | 2022-10-09 07:51 | NUR ---
WOUND CARE CONSULT: PT PRESENTS WITH SWELLING AND REDNESS TO LOWER LEGS, PRESENT ON ADMISSION. DISCUSSED SKIN PROTECTION AND IMPORTANCE OF LEG ELEVATION WITH NURSING STAFF AND PT. WILL SEE PRN. BOLTON IN AGREEMENT WITH PLAN OF CARE.
[2022-10-09 08:00] VITALS: BP 140/80
[2022-10-09] MEDS: ASPIRIN 81 MG TAB.CHEW PO SCH (08:09)
[2022-10-09] MEDS: FERROUS SULFATE (325 MG) 325 MG/TAB TABLET PO SCH (08:09)
[2022-10-09] MEDS: LORAZEPAM 1 MG TABLET PO SCH (08:09)
[2022-10-09] MEDS: METOPROLOL SUCCINATE 50 MG TAB.SR.24H PO SCH (08:10)
[2022-10-09] MEDS: DILTIAZEM HCL CD 240 MG PO SCH (08:10)
[2022-10-09] MEDS: CLOPIDOGREL BISULFATE 75 MG TABLET PO SCH (08:10)
[2022-10-09] MEDS: APIXABAN 2.5 MG TABLET PO SCH ×2 (08:11→20:23)
[2022-10-09 08:58] LABS: BASOPHILS % (AUTO) 0.6 % (0.0-2.0); HEMATOCRIT 45 % (39-51); HEMOGLOBIN 14.1 g/dL (13.5-17.5); LYMPHOCYTES # (AUTO) 1.2 K/uL (0.8-4.8); LYMPHOCYTES % (AUTO) 16.5 % (20.0-44.0); MEAN CORPUSCULAR HGB CONC 32 g/dl (31.0-36.0); MEAN CORPUSCULAR VOLUME 96 fL (80-96); MONOCYTES # (AUTO) 0.7 K/uL (0.1-1.30); MONOCYTES % (AUTO) 9.8 % (2.0-12.0); NEUTROPHILS # (AUTO) 5.1 K/uL (1.8-8.9); NEUTROPHILS % (AUTO) 72.1 % (43.0-81.0); PLATELET COUNT (AUTO) 164 K/uL (150-450); RED BLOOD CELL COUNT(AUTO) 4.62 MIL/uL (4.5-6.0); WHITE BLOOD COUNT (AUTO) 7.1 K/uL (4.3-11.0)
[2022-10-09 09:07] LABS: CREATININE 0.9 mg/dL (0.6-1.3); PHOSPHORUS 3.5 mg/dL (2.5-4.9); POTASSIUM 3.4 mmol/L (3.5-5.1)
[2022-10-09] MEDS: POTASSIUM CHLORIDE 20 MEQ TAB.PRT.SR PO SCH ×3 (09:54→11:48)
[2022-10-09] MEDS: FUROSEMIDE 40 MG/4 ML VIAL IV SCH ×3 (09:55→17:04)
[2022-10-09 12:00] VITALS: BP 129/73
[2022-10-09] MEDS: ACETAMINOPHEN 325 MG TABLET PO PRN ×2 (14:31→21:49)
[2022-10-09] MEDS: LORAZEPAM 0.5 MG TABLET PO SCH ×2 (14:31→20:22)
--- NOTE | 2022-10-09 14:31 | NUR ---
RN NOTES: PATIENT COMPLAINED OF HEADACHE 07/18. GAVE TYLENOL 650 MG PO.VS 119/76,HR 79 BPM.
--- NOTE | 2022-10-09 15:00 | NUR ---
RN NOTES: PATIENT'S PAIN SCALE IS 0/10, PER PT HEADACHE DISAPPEARED AFTER TAKING TYLENOL.
[2022-10-09 16:00] VITALS: BP 104/61
[2022-10-09] MEDS: ARIPIPRAZOLE 2 MG TABLET PO SCH (16:15)
[2022-10-09] MEDS: TAMSULOSIN 0.4 MG CAP.SR.24H PO SCH (17:04)
[2022-10-09] MEDS: ATORVASTATIN 40 MG TABLET PO SCH (17:04)
--- NOTE | 2022-10-09 18:42 | NUR ---
DIRECTOR ADULT CLOSING NOTES: PT IN BED AWAKE ALERT AND ORIENTED X 4 SLOVAK SPEAKING BUT ABLE TO UNDERSTAND AND COMMUNICATE IN ICELANDIC. NO SOB OR CARDIAC DISTRESS NOTED ON ROOM AIR AND SATURATING WELL.NO SHORTNESS OF BREATH NOTED IN OUR SHIFT. ON TELE MONITOR WITH CURRENT READING OF CONTROLLED AFIB @91BPM. PT DENIES PAIN AT THIS TIME. NOTED WITH BLE EDEMA +3. IV ACCESS ON RFA GAUGE 20 PATENT,INTACT AND SALINE LOCKED. PATIENT IS NOT COMPLIANT IN ELEVATING HIS LEGS .SAFETY MEASURES MAINTAINED BED LOCKED AND IN LOWEST POSITION, SIDE RAILS UP X 2. CALL LIGHT IN EASY REACH AND WILL ENDORSE TO IT DESKTOP SUPPORT SPECIALIST RN FOR MONICA.
--- NOTE | 2022-10-09 19:10 | NUR ---
RN opening notes Pt is sitting in bed comfortably watching TV. Pt is alert and orientedX4. On room air. No SOB. No S/S of distress noted. Tele monitor showed afib controlled hr at 66. IV site at RFA# 20 is clean, intact, flushes well and SL. Safety precautions is maintained. Bed at low position, brakes locked, side rails upX2, hob elevated, urinal at the bedside, bed alarm is on and call light is within reach. Will continue to monitor.
[2022-10-09 20:00] VITALS: BP 105/63
[2022-10-09] MEDS: CEFTRIAXONE 1 G in IV D5W 50 ML IV SCH (20:04)
[2022-10-09] MEDS ORDERED: VANCOMYCIN 1.5 GM in IV D5W 500ml IV SCH (21:00)
--- NOTE | 2022-10-09 21:51 | NUR ---
RN notes Pt is complaining of headache. administered tylenol/po as ordered for headache. safety precautions is maintained. will continue to monitor.
[2022-10-09] MEDS: VANCOMYCIN 1.25 GM in IV D5W 250 ML IV SCH (22:39)
[2022-10-10] VITALS: BP 125/66
--- NOTE | 2022-10-10 01:28 | NUR ---
RN notes Received a phone call from Charly Russo. Troponin 258. charge nurse is aware and informed. Will continue to monitor.
[2022-10-10 04:00] VITALS: BP 127/58
--- NOTE | 2022-10-10 06:25 | NUR ---
RN closing notes Pt is resting in bed comfortably. Pt is alert and orientedX4. On room air. No SOB. No S/S of distress noted. Vs is stable. Tele monitor showed afib controlled hr at 72. IV site at L hand# 24 is clean, intact, flushes well and SL. Routine meds were given as ordered. Kept Pt clean, dry and comfortable. safety precautions is maintained. Bed at low position, brakes locked, side rails upX2, hob elevated, urinal at the bedside, bed alarm is on and call light is within reach. Will endorse to am nurse for MONICA.
[2022-10-10 06:30] LABS: BASOPHILS % (AUTO) 0.4 % (0.0-2.0); EOSINOPHILS % (AUTO) 1.8 % (0.0-6.0); HEMATOCRIT 44 % (39-51); HEMOGLOBIN 14.2 g/dL (13.5-17.5); LYMPHOCYTES # (AUTO) 1.1 K/uL (0.8-4.8); MEAN CORPUSCULAR HGB CONC 33 g/dl (31.0-36.0); MEAN CORPUSCULAR VOLUME 95 fL (80-96); MONOCYTES # (AUTO) 0.7 K/uL (0.1-1.30); MONOCYTES % (AUTO) 12.1 % (2.0-12.0); NEUTROPHILS # (AUTO) 4.1 K/uL (1.8-8.9); NEUTROPHILS % (AUTO) 67.7 % (43.0-81.0); PLATELET COUNT (AUTO) 150 K/uL (150-450); RED BLOOD CELL COUNT(AUTO) 4.59 MIL/uL (4.5-6.0); WHITE BLOOD COUNT (AUTO) 6.1 K/uL (4.3-11.0)
--- NOTE | 2022-10-10 07:22 | NUR ---
RN OPENING notes Received Pt is resting, sitting in chair comfortably. Pt is alert and orientedX4. ambulatory, On room air. No SOB. No S/S of distress noted. Vs is stable. Tele monitor showed afib controlled hr at 86. IV site at L hand# 24 is clean, intact, flushes well and SL. Routine meds were given as ordered. Kept Pt clean, dry and comfortable. safety precautions is maintained. Bed at low position, brakes locked, side rails upX2, hob elevated, urinal at the bedside, bed alarm is on and call light is within reach. Will administer all scheduled meds and continue to monitor.
[2022-10-10 07:23] LABS: ALBUMIN 3.9 g/dL (3.4-5.0); BILIRUBIN,TOTAL 0.8 mg/dL (0.2-1.0); CALCIUM, SERUM 10.1 mg/dL (8.5-10.1); MAGNESIUM 2.2 mg/dL (1.8-2.4); PHOSPHORUS 3.3 mg/dL (2.5-4.9); POTASSIUM 3.4 mmol/L (3.5-5.1); TOTAL PROTEIN, SERUM 7.9 g/dL (6.4-8.2)
[2022-10-10 07:30] VITALS: BP 104/61
[2022-10-10] MEDS: ASPIRIN 81 MG TAB.CHEW PO SCH (08:28)
[2022-10-10] MEDS: LORAZEPAM 1 MG TABLET PO SCH (08:28)
[2022-10-10] MEDS: FERROUS SULFATE (325 MG) 325 MG/TAB TABLET PO SCH (08:28)
[2022-10-10] MEDS: CLOPIDOGREL BISULFATE 75 MG TABLET PO SCH (08:28)
[2022-10-10] MEDS: APIXABAN 2.5 MG TABLET PO SCH ×2 (08:32→20:49)
[2022-10-10] MEDS: METOPROLOL SUCCINATE 50 MG TAB.SR.24H PO SCH (08:45)
[2022-10-10] MEDS: DILTIAZEM HCL CD 240 MG PO SCH (08:45)
[2022-10-10] MEDS: POTASSIUM CHLORIDE 20 MEQ TAB.PRT.SR PO SCH ×3 (09:52→12:12)
[2022-10-10] MEDS: FUROSEMIDE 40 MG/4 ML VIAL IV SCH ×3 (09:52→17:49)
[2022-10-10 11:30] VITALS: BP 112/65
[2022-10-10] MEDS ORDERED: EPOETIN ALFA-EPBX 4,000 UNIT/ML VIAL IV SCH (15:00)
[2022-10-10] MEDS: LORAZEPAM 0.5 MG TABLET PO SCH ×2 (15:03→20:48)
[2022-10-10 16:00] VITALS: BP 107/54
[2022-10-10] MEDS: ARIPIPRAZOLE 2 MG TABLET PO SCH (16:39)
[2022-10-10] MEDS: TAMSULOSIN 0.4 MG CAP.SR.24H PO SCH (17:49)
[2022-10-10] MEDS: ATORVASTATIN 40 MG TABLET PO SCH (17:49)
--- NOTE | 2022-10-10 18:49 | NUR ---
RN CLOSING notes Pt is resting, sitting in chair comfortably. Pt is alert and orientedX4. ambulatory, On room air. No SOB. No S/S of distress noted. Vs is stable. Tele monitor showed afib controlled hr at 82. IV site at L hand# 24 is clean, intact, flushes well and SL. Routine meds were given as ordered. Kept Pt clean, dry and comfortable. safety precautions is maintained. Bed at low position, brakes locked, side rails upX2, hob elevated, urinal at the bedside, bed alarm is on and call light is within reach. strict I&O, output 1600. all meds given as ordered. will endorse to next shift.
--- NOTE | 2022-10-10 19:00 | NUR ---
MARINE FIRER OPENING NOTE PATIENT IS RESTING IN CHAIR AT HIS BED SIDE. PT IS DIVEHI SPEAKING, UNDERSTAND CHINESE WELL. HE IS ALERT AND ORIENTED, AO X 4. PT IS ON RA, TOLERATED WELL, NO S/S OF DISTRESS OR SOB. NO COMPLAIN OF PAIN AT THIS MOMENT. PT IS ON EXTERNAL LIGHTING SPECIALIST, ON THE MONITOR, PT'S HEART RHYTHM IS CONTROLLED A-FIB WITH HR BETWEEN 90S TO 100S. IV ACCESS IS AT HIS L HAND, #24G, SL. FLUSHED WELL WITH 10 CC OF NS. IV SITE IS PATENT AND INTACT. PT IS ON STRICT I& O, EDUCATED THE PT TO KEEP THE URINE IN THE URINAL SO WE CAN DOCUMENT HIS URINE OUTPUT. SAFETY MEASURES ARE IN PLACED: BED IN LOWEST AND LOCKED POSITION; SIDE RAILS UP X 2. CALL LIGHT AND TABLE ARE WITHIN REACH. WILL CONTINUE MONITORING THE PT AND PROVIDE THE CARE PT NEEDS.
[2022-10-10 20:00] VITALS: BP 102/57
[2022-10-10] MEDS: CEFTRIAXONE 1 G in IV D5W 50 ML IV SCH (20:47)
[2022-10-10] MEDS: VANCOMYCIN 1.25 GM in IV D5W 250 ML IV SCH (22:38)
[2022-10-11] VITALS: BP 105/49
[2022-10-11 04:00] VITALS: BP 122/70
--- NOTE | 2022-10-11 06:41 | NUR ---
CLIENT LEADER CLOSING NOTE PATIENT IS SLEEPING IN BED; EASILY BEING AROUSED. HE IS BENGALI SPEAKING, UNDERSTAND WOLOF WELL. HE IS ALERT AND ORIENTED, AO X 4. PT IS ON RA, TOLERATED WELL, NO S/S OF DISTRESS OR SOB. NO COMPLAIN OF PAIN AT THIS MOMENT. PT IS ON EXTERNAL PRODUCTION SUPPORT SUPERVISOR, ON THE MONITOR, PT'S HEART RHYTHM IS CONTROLLED A-FIB WITH HR BETWEEN 90S TO 100S. IV ACCESS IS AT HIS L HAND, #24G, SL. FLUSHED WELL WITH 10 CC OF NS. IV SITE IS PATENT AND INTACT. PT IS ON STRICT I& O, AND DAILY WEIGHT. SAFETY MEASURES ARE IN PLACED: BED IN LOWEST AND LOCKED POSITION; SIDE RAILS UP X 2. CALL LIGHT AND TABLE ARE WITHIN REACH. WILL ENDORSE NEXT SHIFT NURSE FOR CONTINUING PT CARE.
[2022-10-11 07:13] LABS: BASOPHILS % (AUTO) 0.7 % (0.0-2.0); EOSINOPHILS % (AUTO) 1.5 % (0.0-6.0); HEMATOCRIT 46 % (39-51); HEMOGLOBIN 14.2 g/dL (13.5-17.5); LYMPHOCYTES # (AUTO) 1.1 K/uL (0.8-4.8); LYMPHOCYTES % (AUTO) 18.1 % (20.0-44.0); MEAN CORPUSCULAR HGB CONC 31 g/dl (31.0-36.0); MEAN CORPUSCULAR VOLUME 99 fL (80-96); MONOCYTES # (AUTO) 0.8 K/uL (0.1-1.30); MONOCYTES % (AUTO) 12.6 % (2.0-12.0); NEUTROPHILS # (AUTO) 4.2 K/uL (1.8-8.9); NEUTROPHILS % (AUTO) 67.1 % (43.0-81.0); PLATELET COUNT (AUTO) 141 K/uL (150-450); RED BLOOD CELL COUNT(AUTO) 4.67 MIL/uL (4.5-6.0); WHITE BLOOD COUNT (AUTO) 6.3 K/uL (4.3-11.0)
[2022-10-11 07:23] LABS: ALBUMIN 3.6 g/dL (3.4-5.0); BILIRUBIN,TOTAL 0.7 mg/dL (0.2-1.0); CALCIUM, SERUM 9.9 mg/dL (8.5-10.1); CREATININE 1.1 mg/dL (0.6-1.3); MAGNESIUM 2.2 mg/dL (1.8-2.4); PHOSPHORUS 3.4 mg/dL (2.5-4.9); POTASSIUM 4.1 mmol/L (3.5-5.1); TOTAL PROTEIN, SERUM 7.7 g/dL (6.4-8.2)
--- NOTE | 2022-10-11 07:30 | NUR ---
RN OPENING notes Received Pt is resting, sitting in chair comfortably. Pt is alert and orientedX4. ambulatory, On room air. No SOB. No S/S of distress noted. Vs is stable. Tele monitor showed afib controlled hr at 92. IV site at L hand# 24 is clean, intact. Will administer meds as ordered.Kept Pt clean, dry and comfortable. safety precautions is maintained. Bed at low position, brakes locked, side rails upX2, hob elevated, urinal at the bedside, bed alarm is on and call light is within reach. will continue to monitor.
[2022-10-11 08:00] VITALS: BP 134/88
[2022-10-11] MEDS: LORAZEPAM 1 MG TABLET PO SCH (08:16)
[2022-10-11] MEDS: CLOPIDOGREL BISULFATE 75 MG TABLET PO SCH (08:16)
[2022-10-11] MEDS: ASPIRIN 81 MG TAB.CHEW PO SCH (08:16)
[2022-10-11] MEDS: FERROUS SULFATE (325 MG) 325 MG/TAB TABLET PO SCH (08:16)
[2022-10-11] MEDS: DILTIAZEM HCL CD 240 MG PO SCH (08:17)
[2022-10-11] MEDS: METOPROLOL SUCCINATE 50 MG TAB.SR.24H PO SCH (08:18)
[2022-10-11] MEDS: APIXABAN 2.5 MG TABLET PO SCH ×2 (08:19→20:20)
[2022-10-11] MEDS: FUROSEMIDE 40 MG/4 ML VIAL IV SCH ×3 (08:44→16:42)
[2022-10-11] MEDS: ARIPIPRAZOLE 2 MG TABLET PO SCH (15:25)
[2022-10-11] MEDS: LORAZEPAM 0.5 MG TABLET PO SCH ×2 (15:25→20:18)
[2022-10-11 16:00] VITALS: BP 120/70
[2022-10-11] MEDS: TAMSULOSIN 0.4 MG CAP.SR.24H PO SCH (17:39)
[2022-10-11] MEDS: ATORVASTATIN 40 MG TABLET PO SCH (17:39)
--- NOTE | 2022-10-11 18:50 | NUR ---
RN closing notes Pt is resting, sitting in chair comfortably. Pt is alert and orientedX4. ambulatory, On room air. No SOB. No S/S of distress noted. Vs is stable. Tele monitor showed afib controlled hr at 86. IV site at R hand# 24 is clean, intact. all due meds given as ordere d.Kept Pt clean, dry and comfortable. safety precautions is maintained. Bed at low position, brakes locked, side rails upX2, hob elevated, urinal at the bedside, bed alarm is on and call light is within reach. will continue to monitor.
--- NOTE | 2022-10-11 19:10 | NUR ---
ETYMOLOGY PROFESSOR OPENING NOTE PATIENT IS RESTING IN BED. PT IS NAURUAN SPEAKING, UNDERSTAND PERSIAN WELL. HE IS AWAKE, ALERT AND ORIENTED, AO X 4. PT IS ON RA, TOLERATED WELL, NO S/S OF DISTRESS OR SOB. NO COMPLAIN OF PAIN AT THIS MOMENT. PT IS ON EXTERNAL CLERICAL ASSISTANT, ON THE MONITOR, PT'S HEART RHYTHM IS CONTROLLED A-FIB WITH HR AT 70S. IV ACCESS IS AT HIS R HAND, #24G, SL. FLUSHED WELL WITH 10 CC OF NS. IV SITE IS PATENT AND INTACT. PT IS ON STRICT I& O, EDUCATED THE PT TO KEEP THE URINE IN THE URINAL SO WE CAN DOCUMENT HIS URINE OUTPUT. PT VERBALIZED UNDERSTANDING. SAFETY MEASURES ARE IN PLACED: BED IN LOWEST AND LOCKED POSITION; SIDE RAILS UP X 2. CALL LIGHT AND TABLE ARE WITHIN REACH. WILL CONTINUE MONITORING THE PT AND PROVIDE THE CARE PT NEEDS.
[2022-10-11 20:00] VITALS: BP 106/56
[2022-10-11] MEDS: CEFTRIAXONE 1 G in IV D5W 50 ML IV SCH (20:18)
[2022-10-11] MEDS: VANCOMYCIN 1.25 GM in IV D5W 250 ML IV SCH ×2 (23:29→23:50)
--- NOTE | 2022-10-11 23:45 | NUR ---
STUDENT COUNSELLOR NOTE PT IS VERY AGITATED. HE IS SHOUTING AND YELLING; REFUSED IV ANTIBIOTICS. HIS MOOD CHANGES FROM CALM TO ANGRY VERY QUICKLY. PT REFUSED IV MEDICATION VANCOMYCIN AND DID NOT WANT NURSE TO TOUCH THE IV SITE. HE STATED " I WILL PULL IT OUT IF YOU TOUCH IT". IV SITE IS PATENT AND INTACT. PT STATED HE IS TIRED OF THE MEDICATIONS; FURTHERMORE, PT STATED HOSPITAL WAS LIKE [facility].
--- NOTE | 2022-10-11 23:56 | NUR ---
RETAIL ACCOUNT MANAGER NOTE PT REFUSED VANCOMYCIN IV DUE AT 2300. NOTIFIED CHARGE NURSE CHAPARRO AND Darren FAIR. RECEIVED ORDER FOR PSYCH CONSULT FOR THIS PT.
[2022-10-12] VITALS: BP_SYST 131; BP_SYST 145; BP_DIAS 69; BP_DIAS 75
--- NOTE | 2022-10-12 00:35 | NUR ---
CUSHION SEWER NOTE PSYCH CONSULT ORDER WAS PUT IN THE SYSTEM. PRINTED OUT THE ORDER, ATTACHED IT WITH PT'S FACE SHEET, FAXED BOTH SHEETS TO THE GPS. CHARGE NURSE, CHAPARRO, NOTIFIED.
[2022-10-12 04:00] VITALS: BP 114/57
[2022-10-12 06:25] LABS: BASOPHILS % (AUTO) 0.5 % (0.0-2.0); EOSINOPHILS % (AUTO) 1.8 % (0.0-6.0); HEMATOCRIT 43 % (39-51); HEMOGLOBIN 13.8 g/dL (13.5-17.5); LYMPHOCYTES # (AUTO) 1.3 K/uL (0.8-4.8); LYMPHOCYTES % (AUTO) 18.2 % (20.0-44.0); MEAN CORPUSCULAR HGB CONC 32 g/dl (31.0-36.0); MEAN CORPUSCULAR VOLUME 96 fL (80-96); MONOCYTES % (AUTO) 13.8 % (2.0-12.0); NEUTROPHILS # (AUTO) 4.5 K/uL (1.8-8.9); NEUTROPHILS % (AUTO) 65.7 % (43.0-81.0); PLATELET COUNT (AUTO) 164 K/uL (150-450); RED BLOOD CELL COUNT(AUTO) 4.49 MIL/uL (4.5-6.0); WHITE BLOOD COUNT (AUTO) 6.9 K/uL (4.3-11.0)
--- NOTE | 2022-10-12 06:49 | NUR ---
CAR HOP CLOSING NOTE PATIENT IS SLEEPING IN THE CHAIR; EASILY BEING AROUSED. HE IS CHINESE SPEAKING, UNDERSTAND MALTESE WELL. HE IS ALERT AND ORIENTED, AO X 4. PT IS ON RA, TOLERATED WELL, NO S/S OF DISTRESS OR SOB. NO COMPLAIN OF PAIN AT THIS MOMENT. PT IS ON EXTERNAL DATABASE PROGRAMMER, ON THE MONITOR, PT'S HEART RHYTHM IS CONTROLLED A-FIB WITH HR BETWEEN 90S TO 100S. IV ACCESS IS AT HIS R HAND, #24G, SL. FLUSHED WELL WITH 10 CC OF NS. IV SITE IS PATENT AND INTACT. DURING THE SHIFT, PT HAD MULTIPLE EPISODES OF AGITATION. PT REFUSED IV MEDICATION, VANCOMYCIN. BARRELHEAD INSPECTOR BALDO FAIR NOTIFIED. PSYCH CONSULT WAS ORDERED BY BARRELHEAD INSPECTOR. ORDER HAS BEEN FAXED TO THE GPS. PT IS ON STRICT I & O AND DAILY WEIGHT. DURING THE SHIFT, PT'S INTAKE IS 350 ML; AND URINE OUTPUT IS 450 ML. HIS WEIGHT IS 193 LBS AND 10 OZ. SAFETY MEASURES ARE IN PLACED: BED IN LOWEST AND LOCKED POSITION; SIDE RAILS UP X 2. CALL LIGHT AND TABLE ARE WITHIN REACH. WILL ENDORSE NEXT SHIFT NURSE FOR CONTINUING PT CARE.
[2022-10-12 06:51] LABS: ALANINE AMINOTRANSFERASE 24 U/L (12-78); ALBUMIN 3.7 g/dL (3.4-5.0); ALKALINE PHOSPHATASE 106 U/L (46-116); ASPARTATE AMINOTRANSFERASE 15 U/L (15-37); BILIRUBIN,TOTAL 0.8 mg/dL (0.2-1.0); CALCIUM, SERUM 10.2 mg/dL (8.5-10.1); CARBON DIOXIDE 29 mmol/L (21-32); CHLORIDE 106 mmol/L (98-107); GLUCOSE 128 mg/dL (74-106); MAGNESIUM 2.1 mg/dL (1.8-2.4); PHOSPHORUS 2.7 mg/dL (2.5-4.9); POTASSIUM 3.4 mmol/L (3.5-5.1); SODIUM SERUM 145 mmol/L (136-145); TOTAL PROTEIN, SERUM 7.7 g/dL (6.4-8.2); UREA NITROGEN, BLOOD 23 mg/dL (7-18)
--- NOTE | 2022-10-12 07:15 | NUR ---
FAMILY ENGAGEMENT SPECIALIST OPENING NOTE RECEIVED PATIENT AWAKE, WALKING IN THE ROOM, PRIMARILY BELARUSIAN SPEAKING ALSO UNDERSTAND CHINESE. A/O X 4, ON RA, TOLERATED WELL, NO S/S OF DISTRESS OR SOB. NO COMPLAIN OF PAIN AT THIS TIME. PT IS ON EXTERNAL BAR ASSISTANT, ON THE MONITOR, PT'S HEART RHYTHM IS CONTROLLED A-FIB WITH HR BETWEEN 90S TO 100S. IV ACCESS IS AT HIS R HAND, #24G, SL. C/D/I. PATIENT ON STRICT I & O AND DAILY WEIGHT. SAFETY MEASURES ARE IN PLACED: BED IN LOWEST AND LOCKED POSITION; SIDE RAILS UP X 2. CALL LIGHT AND TABLE ARE WITHIN REACH. WILL CONTINUE TO MONITOR
[2022-10-12] MEDS: FERROUS SULFATE (325 MG) 325 MG/TAB TABLET PO SCH (08:34)
[2022-10-12] MEDS: ASPIRIN 81 MG TAB.CHEW PO SCH (08:34)
[2022-10-12] MEDS: DILTIAZEM HCL CD 240 MG PO SCH (08:34)
[2022-10-12] MEDS: METOPROLOL SUCCINATE 50 MG TAB.SR.24H PO SCH (08:34)
[2022-10-12] MEDS: CLOPIDOGREL BISULFATE 75 MG TABLET PO SCH (08:35)
[2022-10-12] MEDS: LORAZEPAM 1 MG TABLET PO SCH (08:35)
[2022-10-12] MEDS: APIXABAN 2.5 MG TABLET PO SCH ×2 (08:36→20:27)
[2022-10-12 08:41] VITALS: BP 118/76
[2022-10-12] MEDS ORDERED: POTASSIUM CHLORIDE 20 MEQ TAB.PRT.SR PO SCH (10:30)
[2022-10-12] MEDS: ARIPIPRAZOLE 2 MG TABLET PO SCH ×2 (10:33→16:31)
[2022-10-12] MEDS: SERTRALINE HCL 25 MG TABLET PO SCH (10:33)
[2022-10-12 12:00] VITALS: BP 125/56
[2022-10-12] MEDS: LORAZEPAM 0.5 MG TABLET PO SCH ×2 (15:11→20:25)
[2022-10-12] MEDS: FUROSEMIDE 40 MG/4 ML VIAL IV SCH ×2 (15:11→16:31)
[2022-10-12] MEDS: ATORVASTATIN 40 MG TABLET PO SCH (17:20)
[2022-10-12] MEDS: TAMSULOSIN 0.4 MG CAP.SR.24H PO SCH (17:20)
--- NOTE | 2022-10-12 19:25 | NUR ---
Patient awake, ambulating in his room, primarily speaks Vietnamese, secondary in Nigerian. A/O x 4, on RA tolerated well. No s/s of SOB nor distress, no complains of pain. Patient with external heart monitor heart rhythm controlled A-fib HR between 86-95. IV access on R hand #24, SL. Patient on strict I/Os and daily weight. Patient seen/observed by Dr. Card not elevated to GPS at this time. Patient irritable at times-just ignore, use positive words and smile, so far it works. All medications given as ordered, all needs met. Safety protocols in placed. Will be endorsed to pm shift nurse for MONICA
[2022-10-12 20:00] VITALS: BP 115/68
--- NOTE | 2022-10-12 20:14 | NUR ---
PATIENT IN BED, ALERT/ORIENTED X4, ROOM AIR, NO COMPLAIN OF PAIN, NO DISTRESS, NOTED BLE EDEMA. CONTINENT OF BOWEL AND BLADDER, AMBULATORY, COMPLIANT WITH KEEPING TRACK OF URINE OUTPUT. KEPT SAFE, WILL CONTINUE TO MONITOR.
[2022-10-13 00:56] VITALS: BP 134/75
--- NOTE | 2022-10-13 06:35 | NUR ---
ALERT/ORIENTED X3, ROOM AIR, NO COMPLAIN OF PAIN. IRRITABLE, MOOD SWINGS, CHANGES DEMEANOR IN A SNAP. AFIB CONTROLLED IN THE TELE. ELIQUIS FOR VTE. BLE NON PITTING EDEMA, WITH REDNESS, SKIN INTACT. AMBULATORY, CONTINENT, STRICT I&O, CONTINUE DIURESIS, LASIX BID, DAILY WEIGHT. SEEN BY DR. ZEPEDA WITH DX OF UNSPECIFIED ANXIETY AND MAJOR DEPRESSION, STARTED ON ABILIFY AND ZOLOFT.
[2022-10-13 07:23] LABS: CALCIUM, SERUM 9.9 mg/dL (8.5-10.1); CREATININE 1.1 mg/dL (0.6-1.3); POTASSIUM 3.2 mmol/L (3.5-5.1)
[2022-10-13 07:30] VITALS: BP 110/64
--- NOTE | 2022-10-13 07:32 | NUR ---
OPENING NOTE PATIENT AWAKE, SITING ON BED, A/OX4 PASHTO SPEAKING, ON ROOM AIR WITH NO S/S OF SOB OR DISTRESS. IV ACCESS ON THE R HAND G22, SL, INTACT AND PATENT, FLUSHING WELL. SKIN INTACT WITH BLE EDEMA PITTING 2/3 WITH REDNESS. PAIN LEVEL 2 ON THE R LEG. AMBULATORY WITH BRP. STRICT I&O. FALL AND SAFETY PRECAUTION IN PLACE: BED LOCKED AND AT THE LOWEST POSITION, SRx2, CALL LIGHT WITHIN REACH. Addendum: 10/13/22 at 1232 by ANGELA SUMNER MAINTENANCE FITTER CORRECTION IV ACCESS G24
[2022-10-13] MEDS: SERTRALINE HCL 25 MG TABLET PO SCH (08:40)
[2022-10-13] MEDS: ARIPIPRAZOLE 2 MG TABLET PO SCH ×2 (08:41→17:16)
[2022-10-13] MEDS: CLOPIDOGREL BISULFATE 75 MG TABLET PO SCH (08:41)
[2022-10-13] MEDS: ASPIRIN 81 MG TAB.CHEW PO SCH (08:41)
[2022-10-13] MEDS: FERROUS SULFATE (325 MG) 325 MG/TAB TABLET PO SCH (08:41)
--- NOTE | 2022-10-13 08:45 | NUR ---
MEDICATION NOTE HELD AM BP MEDICATION, LOW BP.
[2022-10-13] MEDS: APIXABAN 2.5 MG TABLET PO SCH ×2 (08:47→20:15)
[2022-10-13] MEDS: LORAZEPAM 1 MG TABLET PO SCH (08:50)
[2022-10-13] MEDS: FUROSEMIDE 40 MG/4 ML VIAL IV SCH ×2 (08:56→17:23)
[2022-10-13] MEDS: DILTIAZEM HCL CD 240 MG PO SCH (09:00)
[2022-10-13] MEDS: METOPROLOL SUCCINATE 50 MG TAB.SR.24H PO SCH (09:00)
--- NOTE | 2022-10-13 09:07 | NUR ---
NURSE NOTE-NOTIFIED MD PATIENT HAD A 3 SECOND PAUSE @0857, CURRENTLY ON CONTROLLED AFIB 62 A/OX4. DR. CRUZ Hernandez NOTIFIED AND RESPONDED. CURRENTLY NO NEW ORDERS. DR. PERAZA WAS NOTIFIED WELL.
[2022-10-13] MEDS: POTASSIUM CHLORIDE 20 MEQ TAB.PRT.SR PO SCH ×2 (10:47→11:55)
[2022-10-13 11:30] VITALS: BP 110/67
[2022-10-13 11:48] LABS: BASOPHILS % (AUTO) 0.7 % (0.0-2.0); EOSINOPHILS % (AUTO) 1.3 % (0.0-6.0); HEMATOCRIT 44 % (39-51); LYMPHOCYTES # (AUTO) 1.1 K/uL (0.8-4.8); MEAN CORPUSCULAR HGB CONC 32 g/dl (31.0-36.0); MEAN CORPUSCULAR VOLUME 98 fL (80-96); MONOCYTES # (AUTO) 0.4 K/uL (0.1-1.30); MONOCYTES % (AUTO) 7.9 % (2.0-12.0); NEUTROPHILS % (AUTO) 71.1 % (43.0-81.0); PLATELET COUNT (AUTO) 147 K/uL (150-450); RED BLOOD CELL COUNT(AUTO) 4.53 MIL/uL (4.5-6.0); WHITE BLOOD COUNT (AUTO) 5.6 K/uL (4.3-11.0)
[2022-10-13] MEDS: LORAZEPAM 0.5 MG TABLET PO SCH ×2 (15:00→20:14)
[2022-10-13 15:30] VITALS: BP 129/60
--- NOTE | 2022-10-13 16:00 | NUR ---
MEDICATION NOTE HELD LORAZEPAM, PATIENT IS SLEEPING, REQUESTED TO BE LEFT TO SLEEP.
[2022-10-13] MEDS: ATORVASTATIN 40 MG TABLET PO SCH (17:16)
[2022-10-13] MEDS: TAMSULOSIN 0.4 MG CAP.SR.24H PO SCH (17:16)
--- NOTE | 2022-10-13 18:35 | NUR ---
MEDICATION NOTE-MD NOTIFIED FAMILY IS REQUESTING TO D/C CARDIZEM. PER PRIMARY AUTOMATIC TRIMMING SEWER DR. CHOW, ACCORDING TO FAMILY IT WAS D/C DUE TO IT CAUSING VERY LOW B/P. NOTIFIED DR. SAM. Blake AND DR. ZIMMER
--- NOTE | 2022-10-13 18:52 | NUR ---
CLOSING NOTE PATIENT AWAKE, RESTING A/OX4 SERBIAN SPEAKING, ON ROOM AIR WITH NO S/S OF SOB OR DISTRESS. IV ACCESS REMAINS ON THE R HAND G22, SL, INTACT AND PATENT, FLUSHING WELL. PAIN/DISCOMFORT REMAINS ON R LEG. ADMINISTERED MEDICATION ORDERED/ PER PATIENT STATUS. OUTPUT OF THE DAY: 675 ML . FALL AND SAFETY PRECAUTION IN MAINTAINED: BED LOCKED AND AT THE LOWEST POSITION, SRx2, CALL LIGHT WITHIN REACH.
[2022-10-13] MEDS: ACETAMINOPHEN 325 MG TABLET PO PRN (19:33)
--- NOTE | 2022-10-13 19:35 | NUR ---
STAINED GLASS JOINER NOTES RECEIVED PATIENT STANDING BY THE ROOM DOOR WHILE DAUGHTER WAS LEAVING THE HOSPITAL. PATIENT IS A/O TIMES 3.ABLE TO MAKE NEEDS KNOWN IN MOLDOVAN LANGUAGE. AMBULATORY. BRP. ON TELE MONITOR READING CONTROLLED AFIB , HR=67. ALL NEEDS ATTENDED. COMPLAINS OF 3 PAIN. TYLENOL GIVEN PER PATIENT'S REQUEST AT 1933. ALL SAFETY MEASURES IN PLACE. BED LOCKED IN THE LOWEST POSITION. CALL LIGHT AND TABLE IN EASY REACH. SIDE RAILS UP TIMES 2. REMIND THE PATIENT FOR FLUID RESTRICTIONS. VERBALIZED UNDERSTANDING. WILL CONTINUE TO MONITOR CLOSELY.
[2022-10-13 20:00] VITALS: BP 110/68
[2022-10-14] VITALS: BP 134/78
[2022-10-14 04:00] VITALS: BP 103/69
[2022-10-14 07:00] VITALS: BP 137/82
--- NOTE | 2022-10-14 07:30 | NUR ---
MOWING MACHINE OPERATOR CLOSING NOTES PATIENT SITTING AT BED SIDE. PATIENT IS A/O TIMES 3.ABLE TO MAKE NEEDS KNOWN IN DANISH LANGUAGE. AMBULATORY. BRP. ON TELE MONITOR READING CONTROLLED AFIB , HR=68. ALL DUE MEDS GIVEN ORDER.ALL NEEDS ATTENDED. ALL SAFETY MEASURES IN PLACE. BED LOCKED IN THE LOWEST POSITION. CALL LIGHT AND TABLE IN EASY REACH. SIDE RAILS UP TIMES 2. REMIND THE PATIENT FOR FLUID RESTRICTIONS. VERBALIZED UNDERSTANDING. WILL ENDORSE FOR MONICA.
--- NOTE | 2022-10-14 07:31 | NUR ---
POLYSOMNOGRAPHER OPENING NOTE Received pt in bed, awake. A/O x 3, able to make needs known. No pain/discomfort at this time. On room air, tolerating well. On tele monitor, with current reading of afib controlled-68. IV access in right hand #24g, sl. Safety measures maintained: bed in lowest locked position, side rails up x 2, call light and tray table within easy reach. Will continue to monitor.
[2022-10-14] MEDS ORDERED: POTASSIUM CHLORIDE 20 MEQ TAB.PRT.SR PO ONE ×2 (08:00→10:00)
[2022-10-14] MEDS: FUROSEMIDE 40 MG/4 ML VIAL IV SCH ×2 (08:35→17:30)
[2022-10-14] MEDS: ASPIRIN 81 MG TAB.CHEW PO SCH (08:35)
[2022-10-14] MEDS: FERROUS SULFATE (325 MG) 325 MG/TAB TABLET PO SCH (08:35)
[2022-10-14] MEDS: CLOPIDOGREL BISULFATE 75 MG TABLET PO SCH (08:36)
[2022-10-14] MEDS: METOPROLOL SUCCINATE 50 MG TAB.SR.24H PO SCH (08:36)
[2022-10-14] MEDS: ARIPIPRAZOLE 2 MG TABLET PO SCH ×2 (08:36→17:30)
[2022-10-14] MEDS: SERTRALINE HCL 25 MG TABLET PO SCH (08:36)
[2022-10-14] MEDS: APIXABAN 2.5 MG TABLET PO SCH ×2 (08:37→20:19)
[2022-10-14] MEDS: DILTIAZEM HCL CD 240 MG PO SCH (08:49)
[2022-10-14 09:21] LABS: CALCIUM, SERUM 9.7 mg/dL (8.5-10.1); CREATININE 0.9 mg/dL (0.6-1.3); POTASSIUM 3.4 mmol/L (3.5-5.1)
[2022-10-14] MEDS: LORAZEPAM 1 MG TABLET PO SCH (09:39)
[2022-10-14 11:25] VITALS: BP 101/58
[2022-10-14] MEDS: LORAZEPAM 0.5 MG TABLET PO SCH ×2 (14:58→20:18)
[2022-10-14 16:12] VITALS: BP 122/72
[2022-10-14] MEDS: ATORVASTATIN 40 MG TABLET PO SCH (17:30)
[2022-10-14] MEDS: TAMSULOSIN 0.4 MG CAP.SR.24H PO SCH (17:30)
--- NOTE | 2022-10-14 18:00 | NUR ---
RN NOTE Patient IV infiltrated. IV removed.
--- NOTE | 2022-10-14 18:30 | NUR ---
RN NOTE Patient refused IV insertion despite further explaining the need of IV access. Charge Nurse aware.
--- NOTE | 2022-10-14 18:42 | NUR ---
DRYING OVEN TENDER CLOSING NOTE Patient resting in bed. A/O x 3, able to make needs known. No pain/discomfort at this time. On room air, tolerating well. On tele monitor, with current reading of afib controlled-87. No IV access. Needs attended. Safety measures maintained: bed in lowest locked position, side rails up x 2, call light and tray table within easy reach. Will endorse ernique to second shift supervisor.
--- NOTE | 2022-10-14 19:30 | NUR ---
WELL LOGGING OPERATOR MUD ANALYSIS OPENING NOTE RECEIVED PATIENT IN BED, AWAKE, ALERT AND ORIENTED X3. ABLE TO MAKE NEEDS KNOWN. AFEBRILE AND NOT IN ANY FORM OF ACUTE DISTRESS. BREATHING EVEN AND NON LABORED. NO C/O PAIN OR DISCOMFORT AT THIS TIME. ON TELE MONITORING WITH CURRENT READING OF A-FIB 87. SAFETY MEASURES IN PLACE. KEPT BED IN LOCKED AND IN LOW POSITION. SIDE RAILS UP X2. ADVISED TO USE THE CALL LIGHT WHEN IN NEED OF ASSISTANCE.
[2022-10-14 20:00] VITALS: BP 129/98
--- NOTE | 2022-10-14 20:23 | NUR ---
BILINGUAL CASE MANAGER NOTE TRIED TO CONVINCE TO INSERT IV ACCESS BUT PATIENT REFUSED AND SAID "NO MORE IVS". CN NOTIFIED. PER REPORT, PATIENT ALSO REFUSED IV INSERTION DURING THE MORNING SHIFT.
[2022-10-15] VITALS: BP 116/69
[2022-10-15 04:00] VITALS: BP 127/79
[2022-10-15 06:21] LABS: BASOPHILS % (AUTO) 0.7 % (0.0-2.0); EOSINOPHILS % (AUTO) 1.9 % (0.0-6.0); HEMATOCRIT 45 % (39-51); HEMOGLOBIN 14.5 g/dL (13.5-17.5); LYMPHOCYTES # (AUTO) 1.4 K/uL (0.8-4.8); LYMPHOCYTES % (AUTO) 22.4 % (20.0-44.0); MEAN CORPUSCULAR HGB CONC 33 g/dl (31.0-36.0); MEAN CORPUSCULAR VOLUME 96 fL (80-96); MONOCYTES # (AUTO) 0.6 K/uL (0.1-1.30); MONOCYTES % (AUTO) 10.2 % (2.0-12.0); NEUTROPHILS % (AUTO) 64.8 % (43.0-81.0); PLATELET COUNT (AUTO) 172 K/uL (150-450); RED BLOOD CELL COUNT(AUTO) 4.67 MIL/uL (4.5-6.0); WHITE BLOOD COUNT (AUTO) 6.2 K/uL (4.3-11.0)
--- NOTE | 2022-10-15 06:21 | NUR ---
AREA PLANT MANAGER CLOSING NOTE PATIENT IN BED, ASLEEP BUT EASY TO AROUSE AND RESPONSIVE. ABLE TO MAKE NEEDS KNOWN. AFEBRILE AND NOT IN ANY FORM OF ACUTE DISTRESS. BREATHING EVEN AND NON LABORED. NO C/O PAIN OR DISCOMFORT THROUGHOUT THE SHIFT. ON TELE MONITORING WITH CURRENT READING OF A-FIB 79. MEDICATED ORDERED. ON STRICT I/O MONITORING. SAFETY MEASURES IN PLACE. KEPT BED IN LOCKED AND IN LOW POSITION. SIDE RAILS UP X2. ADVISED TO USE THE CALL LIGHT WHEN IN NEED OF ASSISTANCE. ALL NURSING NEEDS ATTENDED. ENDORSED TO INCOMING SHIFT FOR CONTINUITY OF CARE.
[2022-10-15 07:30] VITALS: BP 129/68
--- NOTE | 2022-10-15 07:45 | NUR ---
SPINAL SURGEON OPENING NOTE RECEIVED PATIENT SITTING ON SIDE OF BED AWAKE, ALERT AND ORIENTED X3. ABLE TO MAKE NEEDS KNOWN. VIVIAN DENIES PAIN AT THIS TIME AND NO ACUTE DISTRESS. BREATHING EVEN AND NON LABORED. ON TELE MONITORING WITH CURRENT READING OF A-FIB 77. SAFETY MEASURES IN PLACE. KEPT BED IN LOCKED AND IN LOWEST POSITION. SIDE RAILS UP X2. ADVISED TO USE THE CALL LIGHT WHEN IN NEED OF ASSISTANCE. WILL CONTINUE TO MONITOR.
[2022-10-15 07:54] LABS: CALCIUM, SERUM 10.3 mg/dL (8.5-10.1); CREATININE 0.9 mg/dL (0.6-1.3); POTASSIUM 4.2 mmol/L (3.5-5.1)
[2022-10-15] MEDS: ASPIRIN 81 MG TAB.CHEW PO SCH (08:44)
[2022-10-15] MEDS: LORAZEPAM 1 MG TABLET PO SCH (08:44)
[2022-10-15] MEDS: METOPROLOL SUCCINATE 50 MG TAB.SR.24H PO SCH (08:45)
[2022-10-15] MEDS: ARIPIPRAZOLE 2 MG TABLET PO SCH (08:45)
[2022-10-15] MEDS: SERTRALINE HCL 25 MG TABLET PO SCH (08:45)
[2022-10-15] MEDS: APIXABAN 2.5 MG TABLET PO SCH (08:46)
[2022-10-15] MEDS: CLOPIDOGREL BISULFATE 75 MG TABLET PO SCH (08:46)
[2022-10-15 08:47] VITALS: BP 129/68
[2022-10-15] MEDS: FERROUS SULFATE (325 MG) 325 MG/TAB TABLET PO SCH (08:47)
[2022-10-15] MEDS: DILTIAZEM HCL CD 240 MG PO SCH (08:47)
[2022-10-15] MEDS: FUROSEMIDE 40 MG/4 ML VIAL IV SCH (09:00)
[2022-10-15] MEDS: LORAZEPAM 0.5 MG TABLET PO SCH ×3 (14:52→14:54)
--- NOTE | 2022-10-15 14:56 | NUR ---
RN NOTE. RETURNED ATIVAN 1 WHOLE PILL DUE TO PATIENT DC BEFORE ADMIN. DENISE FRITZ WITNESS.
--- NOTE | 2022-10-15 15:02 | NUR ---
LAM DC NOTE. PT IS A/OX4 AND IS STABLE AND AMBULATORY, STABLE ON RA. PATENT SINGED DISCHARGE CONSENT IN PLACED IN CHART. REMOVED ID BAND AND ESCORTED OFF UNIT BY STAFF AT [id number]. Addendum: 10/15/22 at 1607 by JOSE ALFREDO KELSEY RN PT REFUSED PHOTOS OF SKIN ISSUES. CHARGE NURSE AWARE.
== END 2022-10-15 14:50 | disposition home health service (06) | DRG 280 ==
LOC: ER 18:36 → TELE 21:33
PROVIDERS: ADMIT Nurse Practitioner Acute Care; ATTEND Internal Medicine
DX: I11.0 Hypertensive heart disease with heart failure (principal); I50.23 Acute on chronic systolic (congestive) heart failure; I21.A1 Myocardial infarction type 2; E44.1 Mild protein-calorie malnutrition; L03.116 Cellulitis of left lower limb; L03.115 Cellulitis of right lower limb; I48.20 Chronic atrial fibrillation, unspecified; E66.9 Obesity, unspecified; E88.09 Other disorders of plasma-protein metabolism, not elsewhere classified; F32.9 Major depressive disorder, single episode, unspecified; F41.9 Anxiety disorder, unspecified; I25.10 Atherosclerotic heart disease of native coronary artery without angina pectoris; Z20.822 Contact with and (suspected) exposure to COVID-19; I34.0 Nonrheumatic mitral (valve) insufficiency; N40.0 Benign prostatic hyperplasia without lower urinary tract symptoms; I89.0 Lymphedema, not elsewhere classified; Z79.01 Long term (current) use of anticoagulants; Z68.36 Body mass index [BMI] 36.0-36.9, adult; Z95.5 Presence of coronary angioplasty implant and graft; I87.8 Other specified disorders of veins
CPT/HCPCS: 36415; 71045-TC; 80048-TC; 80053-TC; 80061-TC; 80076-TC; 80202-TC; 83735-TC; 83880; 84100-TC; 84484-TC; 85025-TC; 87040-TC; 87081-TC; 93970-TC; A4223; C9803; G0378; J0696; J1940; J3370; J7060